=== PATIENT | male | born 1940 | race Caucasian/White ===

== ENCOUNTER 2018-02-22 11:41 | Observation (INO) | payer MEDICARE, BC ==
[2018-02-22] MEDS ORDERED: Aspirin 81 mg CHEW TAB* 81 MG TAB.CHEW PO ONE (12:28)
--- NOTE | 2018-02-22 12:43 | ED ---
HPI Chest Pain - HPI Summary HPI Summary: This patient is a 78 year old M presenting to ED with a chief complaint of CP since 1000 this morning. He was vacuuming and scrubbing the floor before onset ( did not worsen tightness during movement). Patient reports he does exercises and does yoga every morning. The CC is described as tightness and both-sided. At 0400 this morning, he had L shoulder pain that lasted about 2 hours. The pain resolved a bit after he started moving around and doing things. The patient rates the pain 4-5/10 in severity. Symptoms aggravated by nothing. Symptoms alleviated by nothing (took Ibuprofen to no relief). Patient reports labored breathing and indigestion (felt like a knot, yesterday after lunch, resolved last night). Patient denies nausea. He reports no prior episode similar to this. Current vitals include 79 BPM, 97 O2 sat, and BP 162/97. Home Medications Medication Instructions Recorded Confirmed Type Albuterol HFA INHALER* [Proair Hfa 1 puff INH DAILY PRN 04/18/13 02/22/18 History Inhaler*] Calcium Carbonate/Magnesium Ox 1,000 mg PO BEDTIME 04/18/13 02/22/18 History [Calcium & Magnesium] [place]-3 Fatty Acids/Fish Oil 1 cap PO DAILY 04/18/13 02/22/18 History [[place] 3] Carboxymethylcellulose Sodium 0.5 % OP BID 01/08/16 02/22/18 History [Refresh Tears] Fluticasone DISKUS 100 MCG(NF) 1 puff INH BEDTIME 01/08/16 02/22/18 History [Flovent Diskus 100 MCG(NF)] Latanoprost 0.005% OPTH (NF) 1 drop BOTH EYES BEDTIME 01/08/16 02/22/18 History [Xalatan 0.005% OPTH*] Cumin 1 dose PO BID 09/08/17 02/22/18 History Ipratropium [place] 0.03 % NA DAILY 09/08/17 02/22/18 History Aspirin EC TAB* [Ecotrin EC Low 81 mg PO DAILY 10/28/17 02/22/18 History Dose 81 MG*] Cholecalciferol TAB* [Vitamin D 1,000 unit PO EVERY OTHER DAY 10/28/17 02/22/18 History TAB*] Cyanocobalamin TAB* [Vitamin B12 1,000 mcg PO EVERY OTHER DAY 10/28/17 02/22/18 History TAB*] Ibuprofen TAB* [Motrin TAB* 600 MG] 600 mg PO Q6D 10/28/17 02/22/18 History Multivitamins/Minerals TAB* 1 tab PO DAILY 10/28/17 02/22/18 History [Theragran/minerals TAB*] Potassium 99 mg PO DAILY 10/28/17 02/22/18 History - History of Current Complaint Chief Complaint: EDChestPainROMI Time Seen by Provider: 02/22/18 12:22 Hx Obtained From: Patient Onset/Duration: Started Hours Ago Timing: Constant, Lasting Hours Initial Severity: Mild Current Severity: Mild Pain Intensity: 3 Pain Scale Used: 0-10 Numeric Chest Pain Location: Discrete at: - L shoulder pain and both-sided CP Character: Tightness Aggravating Factor(s): Nothing Alleviating Factor(s): Nothing - took Ibuprofen to no relief Associated Signs and Symptoms: Positive: Other: - Patient reports labored breathing and indigestion (felt like a knot, yesterday after lunch, resolved last night). Patient denies nausea. - Allergy/Home Medications Allergies/Adverse Reactions: Allergies Allergy/AdvReac Type Severity Reaction Status Date / Time Penicillins Allergy severe Verified 02/22/18 12:33 hives streptomycin Allergy Unknown Verified 02/22/18 12:33 Reaction Details PMH/Surg Hx/FS Hx/Imm Hx Endocrine/Hematology History: Denies: Hx Diabetes Cardiovascular History: Reports: Hx Hypercholesterolemia, Hx Hypotension, Other Cardiovascular Problems/Disorders - CRAMPING IN [place] DURING SLEEP Denies: Hx Congestive Heart Failure, Hx Hypertension, Hx Pacemaker/ICD Respiratory History: Reports: Hx Asthma, Hx Pneumonia, Other Respiratory Problems/Disorders - TB 40 y/o GI History: Reports: Hx Gastroesophageal Reflux Disease History: Reports: Hx Benign Prostatic Hyperplasia, Other Problems/ Disorders - HX OF SCRAPING OF PROSTATE FOR ENLARGED PROSTATE; ED Denies: Hx Renal Disease Musculoskeletal History: Reports: Hx Back Problems, Hx Scoliosis, Other Musculoskeletal History - sciatica Sensory History: Reports: Hx Contacts or Glasses, Hx Glaucoma Denies: Hx Hearing Aid Opthamlomology History: Reports: Hx Contacts or Glasses, Hx Glaucoma Neurological History: Reports: Hx Headaches, Other Neuro Impairments/Disorders - REMOTE HX SYNCOPE, PAIN CLINIC PT Psychiatric History: Denies: Hx Panic Disorder - Cancer History Cancer Type, Location and Year: 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 ENLARGED PROSTATE REDUCTION 2002 Hx Anesthesia Reactions: No Infectious Disease History: Yes Infectious Disease History: Reports: Hx Tuberculosis - 40 years ago Denies: Traveled Outside the [place] in Last 30 Days - Family History Known Family History: Positive: Other Negative: Cardiac Disease Family History: stroke - Social History Alcohol Use: Weekly Alcohol Amount: USUALLY 1 A DAY Substance Use Type: Reports: None Smoking Status (MU): Never Smoked Tobacco Have You Smoked in the Last Year: No Review of Systems Positive: Chest Pain - both-sided, tightness Positive: Other - labored breathing Positive: Other - indigestion (felt like a knot). Negative: Nausea Positive: Other - L shoulder pain All Other Systems Reviewed And Are Negative: Yes Physical Exam - Summary Physical Exam Summary: Appearance: Well-appearing, moderate pain distress, well-nourished Skin: Warm, color reflects adequate perfusion, dry Head: Normal Head/Face inspection, atraumatic Eyes: Conjunctiva clear ENT: Normal inspection Neck: Supple, no nodes, no JVD Respiratory: Lungs clear, normal breath sounds, no respiratory distress Cardio: RRR, No murmur, pulses normal, brisk capillary refill Abdomen: Soft, nontender Bowel sounds: Present Musculoskeletal: Strength Intact/ROM intact, no calf tenderness, no edema. Psychological: Normal Neuro: Alert, muscle tone normal, no focal deficit Triage Information Reviewed: Yes Vital Signs On Initial Exam: Initial Vitals Temp Pulse Resp BP Pulse Ox 99.1 F 92 18 151/95 100 02/22/18 11:45 02/22/18 11:45 02/22/18 11:45 02/22/18 11:45 02/22/18 11:45 Vital Signs Reviewed: Yes Diagnostics - Vital Signs Vital Signs Temp Pulse Resp BP Pulse Ox 02/22/18 11:45 99.1 F 92 18 151/95 100 - Laboratory Result Diagrams: 02/22/18 12:34 02/22/18 12:34 Lab Statement: Any lab studies that have been ordered have been reviewed, and results considered in the medical decision making process. - Radiology CXR Radiology Interpretation Completed By: Radiologist - NO ACTIVE DISEASE. ED physician has reviewed this radiology report. - EKG 1154 Cardiac Rate: NL - 77 BPM EKG Rhythm: Sinus Rhythm EKG Interpretation: Prolonged OR interval, minimal ST elevation, anterior leads , no STEMI EKG Comparison: Other - change with 2013 Re-Evaluation - Re-Evaluation First Eval Re-Evaluation Time: 13:31 Comment: Discussed with the patient plan for further care and Dr. Cast will consult in the room. Second Eval Re-Evaluation Time: 15:18 Comment: The patient still has chest tightness, and is currently doing a crossword puzzle. Third Eval Re-Evaluation Time: 16:47 Comment: Discussed plan for admission for troponin at increase of 50% although still in the normal range. Patient is agreeable with this plan. Chest Pain Course/Dx - Course Assessment/Plan: CXR reveals NO ACTIVE DISEASE. In the ED course, the patient was given ASA. Consulted Dr. Macdonald at 1626 who accepts the patient for admission. Allergies noted. High blood pressure noted. Pt medications reviewed this visit. The patient will be admitted. The patient is agreeable with this plan. - Chest Pain Differential Diagnosis/HQI/PQRI: Other: - elevated blood pressure without diagnosis of hypertension, chest pain, elevated troponin - Diagnoses Provider Diagnoses: Elevated blood pressure reading without diagnosis of hypertension, Chest pain, Elevated troponin - Provider Notifications Discussed Care Of Patient With: Deirdre Macdonald Time Discussed With Above Provider: 16:26 Instructed by Provider To: Other - Consulted Dr. Macdonald at 1626 who accepts the patient for admission. Discharge - Sign-Out/Discharge Documenting (check all that apply): Patient Departure - Discharge Plan Condition: Stable Disposition: ADMITTED TO [facility] Referrals: Ashwin Hayward MD [Primary Care Provider] -
[2018-02-22 12:44] LABS: ABS Basophils 0.1 10^3/ul (0-0.2); ABS Eosinophils 0.1 10^3/ul (0-0.6); ABS Monocytes 1.1 10^3/ul (0-0.8); ABS Neutrophils 5.4 10^3/ul (1.5-7.7); ABS Nucleated RBC 0 10^3/ul; Eosinophil % 1.2 % (0-6); Hematocrit 44 % (42-52); Hemoglobin 14.9 g/dl (14.0-18.0); Lymphocyte % 22.8 % (25-47); Mean Corpuscular HGB Conc 34 g/dl (31-36); Mean Corpuscular Hemoglobin 31 pg (27-31); Mean Corpuscular Volume 92 fL (80-94); Mean Platelet Volume 8.2 um3 (7.4-10.4); Nucleated Red Blood Cells % 0.1; Platelet Count 156 10^3/ul (150-450); Red Blood Count 4.76 10^6/ul (4.00-5.40); Red Cell Distribution Width 13 % (10.5-15); White Blood Count 8.7 10^3/ul (3.5-10.8)
--- OUTSIDE RECORDS SUMMARY | 2018-02-22 13:00 | XMS REPORT ---
:1940 External Reference #:[id number] Author Organization [facility] Address [address] [place] [address] Phone [phone] Care Team Providers Name Role Phone Ashwin Hayward M.D. 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 [address] Group Name: [place] of [place] [id number] PayID: [id number] Medigap Part B Effective: Policy Number: Milind Galicia 2011 [id number] Group Name: Enhanced [address] [address] PayID: [id number] [place] [id number] Medigap Part B Effective: Policy Number: Milind Yoosels 2010 [id number] Expires: 2011 Group Name: BC/BS of [place] [address] [address] PayID: [id number] [place] [id number] Problems Date Description Provider Status Onset: 03/22/2013 Asthma without status asthmaticus Ashwin Hayward M.D. Active Family History Date Family Member(s) Problem(s) Comments Father due to of "old () age " at 87 no CAD , No DM, Stroke maybe? Father Stroke Mother due to 87 () Stroke , Etoh abuse, Tobac abuse Mother Glaucoma Children 2 Children . Adopted. 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 Cigarette Use Never Smoked Cigarettes ETOH Use Currently consumes 1 glasses of wine daily Smoking Patient has never smoked Exercise Type/Frequency exercises regularly Exercise Type/Frequency . Back exercises in the Am. day. Walks 1 1/2-2 miles about every other Allergies, Adverse Reactions, Alerts Date Description Reaction Status Severity Comments 09/13/2004 Streptomycin active ? reaction 06/23/2011 Penicillins active rash Medications Medication Date Status Form Strength Qnty SIG Indications Ordering Provider Hydrocortisone 08/26 Active Solution 0.1% 60ml apply 4-5 drops Hayward, below lips M.D. as needed Ipratropium 08/23 Active Solution 0.03% 60ml 2 sprays in each Hayward, nostril M.D. bid-tid prn Flovent Diskus 05/29 Active Aerosol 100mcg/Bl 60uni Inhale ist ts puff By Hayward, Mouth M.D. Every Day Aspirin 05/11 Active Tablets 81mg 1 po qd Batool Hayward Ibuprofen 09/18 Active Tablets 600mg 100ta Take 1 bs Tablet By Hayward, Mouth M.D. Three Times A Day as Needed Vitamin B-12 06/16 Active Tablets Sub 2500mcg 1 tab Nacho /2006 every Lessinger, other day M.D. Latanoprost Active Solution 0.005% Unknown / Calcium Citrate Active 1 tab Unknown 1000MG /0000 daily Magnesium 00 Active Capsules 500mg 1 tab Unknown /0000 daily Vitamin D3 00 Active Capsules 400Unit 1 tab Unknown /0000 daily Potassium 00 Active Tablets 99mg 1 tab 2 x Unknown /0000 daily Fish Oil Active Capsules Once a day Unknown /0000 Turmeric Active Capsules 1 by mouth Unknown /0000 every day Quinine Sulfate 02/25 Hx Capsules 324mg 100ca 1 by mouth Z29.9 ps as needed Yesy - M.D. 01/26 Sulfacetamide 05/19 Hx Solution 10% 15ml 2 drops to H10.023 Shawnti R. Sodium both eyes Storm, - qid for 5 COLLECTION CARD CLERK-C 05/29 days or until cleared Sonata 04/01 Hx Capsules 5mg 20cap take one s to two Yesy, - capsule by M.D. 01/26 mouth at bedtime maximum daily dose=2 Prevnar 13 07/31 Hx Suspension 1unit prevnar s vaccine- Yesy, - inject as M.D. 05/28 Flovent Diskus 05/19 Hx Aerosol 250mcg/Bl 60uni 1 puff ist ts every day Yesy - M.D. 08/25 Cyclobenzaprine 05/19 Hx Tablets 5mg 30tab 1-2 by 724.3 Ashwin HCL s mouth Hayward, - three M.D. 05/28 times day as needed Doxycycline 01/12 Hx Capsules 100mg 28cap 1 by mouth 088.81 Ashwin Monohydrate s twice a Hayward, - day x 14 M.D. Zaleplon 01/12 Hx Capsules 5mg 20cap 1-2 by s mouth Yesy, - every M.D. 05/28 night at bedtime as needed for insomnia Doxycycline 12/12 Hx Tablets 100mg 2tabs 2 tabs po 916.6 Julia Hyclate /2013 now Sue, - COLLECTION CARD CLERK-C 05/18 Asmanex 09/22 Hx Aerosol 220mcg/In 1unit Inhale One Ashwin Twisthaler 30 h s puff By Yesy, Tered Doses - Mouth AT M.D. 01/08 Bedtime; [place] Teeth After Use Cipro 08/04 Hx Tablets 500mg 20tab one po bid 486 Shawnti R. /2012 s for 10 Storm, - days [employer]LE[employer] C[employer] CLERK-C 08/14 Guaifenesin 08/04 Hx Tablets 400mg 60tab 1 po bid 486 Shawnti R. /2012 s for mucus Storm, - [employer]LECTION CARD CLERK-C 05/18 Proventil HFA 03/22 Hx Aerosol 108(90Bas 1unit 2 puffs J45.909 e) s q4h prn K.WKris - mcg/Act Jeff, 01/26 M.DKris Spacer, 03/22 Hx 1unit for use s with francesco Vazquez - inhalers Jeff, 05/05 M.Elvia Meclizine HCL 11/08 Hx Tablets 25mg 30tab one tablet Estephanie s every 4-6 Dahlia Rodriges hours as Batool 05/05 needed for dizziness Proctosol HC 11/05 Hx Cream 2.5% 28.35 apply bid 0gm prn Dahlia Hayward M.D. 05/05 Aspirin 05/05 Hx Tablets 325mg 1 po qd Dahlia Hayward M.D. 05/11 Doxycycline 07/[address] 100mg 42cap 1 PO bid X Amada Hyreeseate Part s 3 Weeks Dahlia Mcrae M.D. 04/21 Ciprofloxacin 06/30 Hx Tablets 500mg 20tab 1 po bid 461.0 Estephanie HCL s Dahlia Rodriges M.D. 09/08 Prednisone 06/23 Hx Tablets 10mg 42tab take 6 693.0 Shawnti R. /2010 s tabs by Thomas, - mouth [employer]LE[employer] C[employer] CLERK-C 07/07 today and tomorrow, decrease by one tab every other day then 10mg by mouth for two days, then stop Hydroxyzine HCL 06/23 Hx Tablets 25mg 60tab 1 or 2 po 693.0 Shawnti R. /2010 s qid prn Thomas, - itching [employer]LE[employer] C[employer] CLERK-C 04/21 Amoxicillin/Clav 06/16 Hx Tablets 875-125mg 20tab 1 po bid 466.0 Shawnti R. ulanate /2010 s for 10 Storm, Potassium - days for [employer]LECTION CARD CLERK-C 06/23 infection Proventil HFA 05/02 Hx Aerosol 108(90Bas 1unit 2 puffs 493.90 Shawnti R. e) mcg/ac s q4h prn Tohmas, - COLLECTION CARD CLERK-C 03/22 Vitamin D 08/13 Hx Capsules 1000Unit 30cap 1 po other s day Yesy - M.DKris 01/26 Aspirin 08/13 Hx Tablets 81mg 1 po qd Yesy - M.DKris 05/05 Calcium/Magnesiu 08/13 Hx Tablets 1403-2740 1 qd Yesy, - M.DKris 02/25 Viagra 08/13 Hx Tablets 100mg 12tab 12-1 tab s before Hayward, - intercours M.DKris 02/25 e Ranitidine HCL 08/13 Hx Tablets 150mg 60tab take 1 s tablet Yesy, - daily to M.DKris 08/20 twice daily if needed Ipratropium 08/13 Hx Solution 0.06% 15ml 2 sprays Nikunjwnti R. Douglas each , - nostril [employer]LECTION CARD CLERK-C 05/28 q12hrs prn Triamcinolone 08/13 Hx Cream 0.5% 15gm apply to Acet affected Hayward, - area bid M.D. 04/28 Asmanex 04/29 Hx Inhaler 220mcg 1Mont 1 inh 493.90 Ashwin Twistihaler /2009 h before Yesy, - bed, brush M.D. 01/08 after use Asmanex 60 05/01 Hx Aerosol 220mcg/In 1unit 2 puffs qd 493.90 Ashwin Metered Doses /2008 h s Dahlia Hayward M.DKris 04/29 Proventil HFA 05/01 Hx Aerosol 108mcg/Ac 1unit 2 puffs 493.90 t s q4h prn Dahlia Hayward.DKris 05/02 Flexeril 01/26 Hx Tablets 5mg 30tab 1-2 tid 724.3 s prn Dahlia Hayward.DKris 08/13 Physical Therapy 01/26 Hx Evaluate 724.3 and treat Dahlia Hayward M.D. 04/26 (he to see Jimmie Rosales if possible) Potassium 09/04 Hx Tablets 75mg Nacho /2008 Dahlia Gaxiola M.D. 02/25 Asmanex 120 04/20 Hx Aerosol 220mcg/In 1unit 1 puff qd 493.92 Monika A. Metered Doses /2007 h s Abhishek, - F.N.P.C. 09/04 Albuterol 04/20 Hx Aerosol 90mcg/Act 1unit 2 Puffs 493.92 Monika A. /2007 s Every 4 Abhishek, - Hours prn F.N.P.C. 09/04 Wheeze Nikia 04/20 Hx Tablets 180mg 30tab 1 PO qd 477.9 Monika A. /2007 s Abhishek, - F.N.P.C. 09/04 Doxycycline 02/11 Hx Capsules 100mg 2caps 2 Caps Now Nacho Hyclate /2007 Dahlia Gaxiola M.D. 09/04 Antivert 07/17 Hx Tablets 25mg 48tab one pill 386.10 Shawnti R. /2006 s by mouth Storm, - every 6-8 [employer]LECTION CARD CLERK-C 08/13 hours needed for vertigo Clonazepam 12/23 Hx Tablets 0.5mg 12tab 1-2 tabs 1 Nacho /2006 s hr before Minor, - flight prn M.DKris 09/04 Flonase 05/22 Hx Suspension 50mcg/Spr 1unit 1-2 sprays Shawnti R. /2003 ay s each side Storm, - qd [employer]LE[employer] CARD CLERK-C 05/05 Cipro 03/31 Hx Tablets 500mg 14tab one bid x s 7 days Dahlia Hayward.Elvia 05/10 Keflex 01/28 Hx Tablets 500mg 20tab one bid x 681.02 Julia s 10 days Dahlia Edouard M.DKris 02/04 Nikia 12/19 Hx Cap 60mg 60cap One bid Nacho s prn Nasal Minor, - Congestion M.D. 04/20 Azopt Hx Suspension 1% Anthony,Ph /0000 MD gracie - 05/18 Immunizations CPT Code Status Date Vaccine Reaction Lot # [id number] Given 05/11/2017 [place] [address] Given 08/21/2016 Typhoid Vaccine [id number] 66515 Given 05/24/2016 [place] [address] Given 06/11/2015 Hepatitis A, Adult [id number] 75290 Given 05/29/2015 Prevnar-13 Pneumococcal [id number] Conjugate Vaccine 89144 Given 05/29/2015 Influenza Vaccine High Dose [id number] PF 23505 Given 05/19/2014 Hepatitis A, Adult [id number] 96283 Given 05/17/2014 [place] [address] Given 05/10/2013 Influenza Vaccine-Preservative Free 3 Yrs And Above 21894 Given 05/07/2012 Influenza Vaccine [place] D[place] [id number] [place] [address] Given 05/05/2012 Tdap (Adacel) 65802 Given 08/13/2010 Pneumovax 23 (PPSV23) 65+ /01/18 sore arm, weak, [id number] years or high risk 2 to 64 achy 6 hr post year old injection 87680 Given 05/10/2010 Influenza Vaccine-Preservative Free 3 Yrs And Above 27039 Given 09/04/2008 Zoster Vaccine [id number] 59283 Given 09/04/2008 Td Age 7 to adult Decavac, [id number] Tenivac, [employer] 65698 Given 06/15/2007 Influenza Virus Vaccine, 3 Yrs And Above 88493 Given 05/26/2005 Influenza Virus Vaccine, 3 Yrs And Above 63559 Given 08/08/1999 DT (Adult) 13983 Given 08/01/1996 Influenza Virus Vaccine 17753 Given 05/16/1994 Influenza Virus Vaccine 23064 Given 05/22/1993 Influenza Virus Vaccine Vital Signs Date Vital Result Comment 01/26/2018 Weight 185.00 lb Weight in kg's 83.916 BP Systolic 135 mmHg BP Diastolic 82 mmHg Heart Rate 72 /min Body Temperature 97.8 F O2 % BldC Oximetry 96 % 11/10/2017 Weight 182.00 lb Weight in kg's 82.555 BP Systolic 100 mmHg BP Diastolic 60 mmHg Heart Rate 92 /min Body Temperature 100.3 F O2 % BldC Oximetry 97 % 08/26/2017 Weight 185.00 lb Weight in kg's 83.916 BP Systolic 122 mmHg BP Diastolic 60 mmHg Heart Rate 70 /min Body Temperature 97.1 F Respiratory Rate 16 /min Height 71 inches 5'11" BMI (Body Mass Index) 25.8 kg/m2 O2 % BldC Oximetry 97 % 02/25/2017 Weight 185.00 lb Weight in kg's 83.916 BP Systolic 124 mmHg BP Diastolic 58 mmHg Heart Rate 68 /min Body Temperature 97.6 F Respiratory Rate 19 /min O2 % BldC Oximetry 98 % 08/21/2016 Weight 184.00 lb Weight in kg's 83.462 BP Systolic 128 mmHg BP Diastolic 68 mmHg Heart Rate 72 /min Body Temperature 97.7 F Respiratory Rate 14 /min Height 69.5 inches 5'9.50" BMI (Body Mass Index) 26.8 kg/m2 05/19/2016 Weight 187.00 lb Weight in kg's 84.823 BP Systolic 118 mmHg BP Diastolic 62 mmHg Heart Rate 82 /min Body Temperature 98.1 F Respiratory Rate 17 /min O2 % BldC Oximetry 98 % 05/29/2015 Weight 185.00 lb Weight in kg's 83.916 BP Systolic 120 mmHg BP Diastolic 76 mmHg Heart Rate 80 /min Height 70 inches 5'10" BMI (Body Mass Index) 26.5 kg/m2 05/19/2014 Weight 186.00 lb Weight in kg's 84.370 BP Systolic 114 mmHg BP Diastolic 72 mmHg Heart Rate 80 /min Height 71 inches 5'11" BMI (Body Mass Index) 25.9 kg/m2 01/12/2014 Weight 182.00 lb Weight in kg's 82.555 BP Systolic 96 mmHg BP Diastolic 68 mmHg Heart Rate 78 /min Body Temperature 96.9 F O2 % BldC Oximetry 99 % 12/12/2013 Weight 184.00 lb Weight in kg's 83.462 BP Systolic 114 mmHg BP Diastolic 66 mmHg Heart Rate 64 /min 08/04/2013 Weight 186.00 lb Weight in kg's 84.370 BP Systolic 120 mmHg BP Diastolic 70 mmHg Heart Rate 80 /min Body Temperature 97.5 F O2 % BldC Oximetry 95 % Level AT Rest 05/10/2013 Weight 180.00 lb Weight in kg's 81.648 BP Systolic 102 mmHg BP Diastolic 60 mmHg Heart Rate 72 /min Body Temperature 97.8 F Height 69.5 inches 5'9.50" BMI (Body Mass Index) 26.2 kg/m2 03/22/2013 Weight 180.00 lb Weight in kg's 81.648 BP Systolic 100 mmHg BP Diastolic 66 mmHg Heart Rate 77 /min Body Temperature 97.8 F O2 % BldC Oximetry 98 % 11/05/2012 Weight 176.00 lb Weight in kg's 79.834 BP Systolic 120 mmHg BP Diastolic 72 mmHg Heart Rate 74 /min Body Temperature 98.6 F 05/05/2012 Weight 180.00 lb Weight in kg's 81.648 BP Systolic 110 mmHg BP Diastolic 70 mmHg Heart Rate 84 /min Height 70 inches 5'10" BMI (Body Mass Index) 25.8 kg/m2 03/23/2012 Weight 179.00 lb Weight in kg's 81.194 BP Systolic 118 mmHg BP Diastolic 66 mmHg Heart Rate 76 /min 07/04/2011 Weight 182.00 lb Weight in kg's 82.555 BP Systolic 110 mmHg BP Diastolic 60 mmHg Heart Rate 68 /min Body Temperature 96.8 F 06/30/2011 Weight 183.00 lb Weight in kg's 83.009 BP Systolic 96 mmHg BP Diastolic 70 mmHg Heart Rate 80 /min 7 Body Temperature 97.6 F O2 % BldC Oximetry 98 % 06/23/2011 Weight 174.00 lb Weight in kg's 78.926 BP Systolic 116 mmHg BP Diastolic 66 mmHg Heart Rate 80 /min Body Temperature 98.3 F O2 % BldC Oximetry 98 % AT Room Air 06/16/2011 Weight 181.00 lb Weight in kg's 82.102 BP Systolic 100 mmHg BP Diastolic 60 mmHg Heart Rate 84 /min 08/13/2010 Weight 187.00 lb Weight in kg's 84.823 BP Systolic 130 mmHg BP Diastolic 70 mmHg Heart Rate 60 /min Respiratory Rate 18 /min Height 70 inches 5'10" BMI (Body Mass Index) 26.8 kg/m2 04/29/2010 Weight 184.00 lb Weight in kg's 83.462 BP Systolic 120 mmHg BP Diastolic 70 mmHg Heart Rate 80 /min 03/22/2010 Weight 186.00 lb Weight in kg's 84.370 BP Systolic 118 mmHg BP Diastolic 78 mmHg Heart Rate 68 /min Body Temperature 97.2 F Last Menstrual Period 0 O2 % BldC Oximetry 94 % On Room Air 09/05/2009 Weight 184.00 lb Weight in kg's 83.462 BP Systolic 120 mmHg BP Diastolic 70 mmHg Heart Rate 76 /min 05/01/2009 Weight 186.00 lb Weight in kg's 84.370 BP Systolic 124 mmHg BP Diastolic 70 mmHg Heart Rate 76 /min 01/26/2009 Weight 183.00 lb Weight in kg's 83.009 BP Systolic 120 mmHg BP Diastolic 80 mmHg Heart Rate 68 /min Body Temperature 96.5 F 09/04/2008 Weight 184.00 lb Weight in kg's 83.462 BP Systolic 110 mmHg BP Diastolic 60 mmHg Heart Rate 60 /min Height 70 inches 5'10" BMI (Body Mass Index) 26.4 kg/m2 05/22/2008 Weight 184.00 lb Weight in kg's 83.462 BP Systolic 92 mmHg BP Diastolic 60 mmHg Heart Rate 72 /min Height 70.5 inches 5'10.50" BMI (Body Mass Index) 26.0 kg/m2 04/20/2008 Weight 187.00 lb Weight in kg's 84.823 BP Systolic 120 mmHg BP Diastolic 70 mmHg Heart Rate 64 /min Height 70.5 inches 5'10.50" BMI (Body Mass Index) 26.4 kg/m2 08/30/2007 Weight 185.00 lb Weight in kg's 83.916 BP Systolic 118 mmHg BP Diastolic 68 mmHg Heart Rate 67 /min Height 70.5 inches 5'10.50" BMI (Body Mass Index) 26.2 kg/m2 Last Menstrual Period 0 O2 % BldC Oximetry 97 % 07/17/2007 Weight 187.00 lb With Clothes Weight in kg's 84.823 BP Systolic 110 mmHg BP Diastolic 62 mmHg Body Temperature 97.9 F Height 70.5 inches 5'10.50" BMI (Body Mass Index) 26.4 kg/m2 06/16/2007 Weight 185.00 lb Weight in kg's 83.916 BP Systolic 104 mmHg BP Diastolic 72 mmHg Heart Rate 80 /min Height 70.5 inches 5'10.50" BMI (Body Mass Index) 26.2 kg/m2 08/26/2006 Weight 188.00 lb Weight in kg's 85.277 BP Systolic 120 mmHg BP Diastolic 80 mmHg Heart Rate 60 /min Respiratory Rate 18 /min Height 70.5 inches 5'10.50" BMI (Body Mass Index) 26.6 kg/m2 05/26/2005 Weight 186.00 lb Weight in kg's 84.370 BP Systolic 100 mmHg BP Diastolic 70 mmHg Heart Rate 72 /min Height 70.5 inches 5'10.50" BMI (Body Mass Index) 26.3 kg/m2 09/13/2004 Weight 184.00 lb Weight in kg's 83.462 BP Systolic 110 mmHg BP Diastolic 70 mmHg Body Temperature 97.1 F Height 70.5 inches 5'10.50" BMI (Body Mass Index) 26.0 kg/m2 05/22/2004 Weight 184.00 lb Weight in kg's 83.462 BP Systolic 98 mmHg BP Diastolic 60 mmHg Heart Rate 76 /min Respiratory Rate 18 /min Height 70.5 inches 5'10.50" BMI (Body Mass Index) 26.0 kg/m2 02/05/2004 Weight 182.00 lb Weight in kg's 82.555 BP Systolic 120 mmHg BP Diastolic 60 mmHg 11/24/2003 Weight 182.00 lb Weight in kg's 82.555 BP Systolic 122 mmHg BP Diastolic 72 mmHg Heart Rate 71 /min Respiratory Rate 18 /min 04/07/2003 BP Systolic 90 mmHg BP Diastolic 64 mmHg Body Temperature 98.8 F 03/23/2003 Weight 184.00 lb Weight in kg's 83.462 BP Systolic 110 mmHg BP Diastolic 70 mmHg Body Temperature 8.4 F 03/03/2003 Weight 184.00 lb Weight in kg's 83.462 BP Systolic 110 mmHg BP Diastolic 62 mmHg Body Temperature 98.2 F 12/19/2002 Weight 184.00 lb Weight in kg's 83.462 BP Systolic 100 mmHg BP Diastolic 60 mmHg Heart Rate 76 /min Respiratory Rate 18 /min Height 71 inches BMI (Body Mass Index) 25.7 kg/m2 09/05/2002 Weight 187.50 lb Weight in kg's 85.0 BP Systolic 104 mmHg BP Diastolic 68 mmHg 01/05/2002 Weight 189.00 lb BP Systolic 92 mmHg BP Diastolic 60 mmHg Heart Rate 72 /min Results Test Date Test Result H/L Range Note Istat BUN/Crea/Egfr/V Mainct 01/27/2018 Poc Bun Mainct 19 mg/dL High 9-18 Poc Crea Mainct 0.9 mg/dL 0.6-0.9 GFR Non- MCT 81.6 >60 GFR Mainct 98.7 >60 1 Order 01/26/2018 EKG <pending> Laboratory test finding 08/25/2017 Hemoglobin A1c 5.5 % 4.0-5.6 2 Comp Metabolic Panel 08/25/2017 Sodium 138 mmol/L 133-145 Potassium 3.9 mmol/L 3.5-5.0 Chloride 104 mmol/L 101-111 Co2 Carbon Dioxide 30 mmol/L 22-32 Anion Gap 4 mmol/L 2-11 Glucose 93 mg/dL 70-100 Blood Urea Nitrogen 15 mg/dL 6-24 Creatinine 0.96 mg/dL 0.67-1.17 BUN/Creatinine Ratio 15.6 8-20 Calcium 9.2 mg/dL 8.6-10.3 Total Protein 6.6 g/dL 6.4-8.9 Albumin 3.8 g/dL 3.2-5.2 Globulin 2.8 g/dL 2-4 Albumin/Globulin Ratio 1.4 1-3 Total Bilirubin 1.10 mg/dL High 0.2-1.0 Alkaline Phosphatase 63 U/L 34-104 Alt 20 U/L 7-52 Ast 23 U/L 13-39 Egfr Non- 76.0 >60 Egfr 97.7 >60 3 Lipid Profile (Trig/Chol/HDL) 08/25/2017 Triglycerides 92 mg/dL 4 Cholesterol 153 mg/dL 5 HDL Cholesterol 34.3 mg/dL 6 LDL Cholesterol 100 mg/dL 7 CBC Auto Diff 08/25/2017 White Blood Count 5.8 10^3/uL 3.5-10.8 Red Blood Count 4.85 10^6/uL 4.0-5.4 Hemoglobin 15.2 g/dL 14.0-18.0 Hematocrit 44 % 42-52 Mean Corpuscular Volume 91 fL 80-94 Mean Corpuscular Hemoglobin 31 pg 27-31 Mean Corpuscular HGB Conc 34 g/dL 31-36 Red Cell Distribution Width 13 % 10.5-15 Platelet Count 156 10^3/uL 150-450 Mean Platelet Volume 8 um3 7.4-10.4 Abs Neutrophils 2.3 10^3/uL 1.5-7.7 Abs Lymphocytes 2.6 10^3/uL 1.0-4.8 Abs Monocytes 0.7 10^3/uL 0-0.8 Abs Eosinophils 0.2 10^3/uL 0-0.6 Abs Basophils 0 10^3/uL 0-0.2 Abs Nucleated RBC 0 10^3/uL Granulocyte % 40.1 % 38-83 Lymphocyte % 44.2 % 25-47 Monocyte % 12.0 % High 1-9 Eosinophil % 3.0 % 0-6 Basophil % 0.7 % 0-2 Nucleated Red Blood Cells % 0.1 Laboratory test finding 08/25/2017 Vitamin B12 616 pg/mL 180-914 8 Laboratory test finding 08/21/2016 Hemoglobin A1c (Glyco 5.3 % Less than 6.0 9 HGB) Comp Metabolic Panel 08/21/2016 Sodium 138 mmol/L 133-145 Potassium 4.2 mmol/L 3.5-5.0 Chloride 105 mmol/L 101-111 Co2 Carbon Dioxide 29 mmol/L 22-32 Anion Gap 4 mmol/L 2-11 Glucose 96 mg/dL 70-100 Blood Urea Nitrogen 17 mg/dL 6-24 Creatinine 0.98 mg/dL 0.67-1.17 BUN/Creatinine Ratio 17.3 8-20 Calcium 9.6 mg/dL 8.6-10.3 Total Protein 7.0 g/dL 6.4-8.9 Albumin 4.2 g/dL 3.2-5.2 Globulin 2.8 g/dL 2-4 Albumin/Globulin Ratio 1.5 1-3 Total Bilirubin 1.40 mg/dL High 0.2-1.0 Alkaline Phosphatase 57 U/L 34-104 Alt 17 U/L 7-52 Ast 21 U/L 13-39 Egfr Non- 74.4 >60 Egfr 95.6 >60 10 Lipid Profile (Trig/Chol/HDL) 08/21/2016 Triglycerides 159 mg/dL 11 Cholesterol 177 mg/dL 12 HDL Cholesterol 33.4 mg/dL 13 LDL Cholesterol 112 mg/dL 14 CBC Auto Diff 08/21/2016 White Blood Count 6.4 10^3/uL 3.5-10.8 Red Blood Count 5.09 10^6/uL 4.0-5.4 Hemoglobin 15.7 g/dL 14.0-18.0 Hematocrit 47 % 42-52 Mean Corpuscular Volume 92 fL 80-94 Mean Corpuscular Hemoglobin 31 pg 27-31 Mean Corpuscular HGB Conc 33 g/dL 31-36 Red Cell Distribution Width 13 % 10.5-15 Platelet Count 146 10^3/uL Low 150-450 Mean Platelet Volume 10 um3 7.4-10.4 Abs Neutrophils 2.7 10^3/uL 1.5-7.7 Abs Lymphocytes 2.8 10^3/uL 1.0-4.8 Abs Monocytes 0.7 10^3/uL 0-0.8 Abs Eosinophils 0.1 10^3/uL 0-0.6 Abs Basophils 0 10^3/uL 0-0.2 Abs Nucleated RBC 0.01 10^3/uL Granulocyte % 42.2 % 38-83 Lymphocyte % 44.2 % 25-47 Monocyte % 10.6 % High 1-9 Eosinophil % 2.3 % 0-6 Basophil % 0.7 % 0-2 Nucleated Red Blood Cells % 0.1 Laboratory test finding 08/21/2016 Vitamin B12 583 pg/mL 180-914 15 Urine DIP 08/21/2016 Leukocytes NEG Neg Urine Nitrites NEG Neg Urobilinogen NORM Norm Total Protein, Urine NEG Neg Urine pH 5 5-6 Urine Blood TRACE Neg Specific [place] 1.020 1.01-1.02 Urine Ketones NEG Neg Urine Bilirubin NEG Neg Urine Glucose NORM Norm Laboratory test 01/14/2016 Surgical Pathology SEE RESULT BELOW 16 finding Laboratory test 05/23/2015 Hemoglobin A1c 6.0 % Less than 6.0 17 finding Comp Metabolic Panel 05/23/2015 Sodium 137 mmol/L 133-145 Potassium 4.1 mmol/L 3.5-5.0 Chloride 106 mmol/L 101-111 Co2 Carbon Dioxide 27 mmol/L 22-32 Anion Gap 4 mmol/L 2-11 Glucose 95 mg/dL 70-100 Blood Urea Nitrogen 11 mg/dL 6-24 Creatinine 1.03 mg/dL 0.67-1.17 BUN/Creatinine Ratio 10.7 8-20 Calcium 9.0 mg/dL 8.6-10.3 Total Protein 6.7 g/dL 6.4-8.9 Albumin 4.0 g/dL 3.2-5.2 Globulin 2.7 g/dL 2-4 Albumin/Globulin Ratio 1.5 1-3 Total Bilirubin 0.70 mg/dL 0.2-1.0 Alkaline Phosphatase 52 U/L 34-104 Alt 17 U/L 7-52 Ast 19 U/L 13-39 Egfr Non- 70.4 >60 Egfr 90.5 >60 18 Lipid Profile (Trig/Chol/HDL) 05/23/2015 Triglycerides 107 mg/dL 19 Cholesterol 163 mg/dL 20 HDL Cholesterol 33.0 mg/dL 21 LDL Cholesterol 109 mg/dL 22 CBC Auto Diff 05/23/2015 White Blood Count 6.1 10^3/uL 4.8-10.8 Red Blood Count 5.04 10^6/uL 4.0-5.4 Hemoglobin 15.6 g/dL 14.0-18.0 Hematocrit 48 % 42-52 Mean Corpuscular Volume 95 fL High 80-94 Mean Corpuscular Hemoglobin 31 pg 27-31 Mean Corpuscular HGB Conc 33 g/dL 31-36 Red Cell Distribution Width 13 % 10.5-15 Platelet Count 139 10^3/uL Low 150-450 Mean Platelet Volume 9 um3 7.4-10.4 Abs Neutrophils 2.3 10^3/uL 1.5-7.7 Abs Lymphocytes 2.8 10^3/uL 1.0-4.8 Abs Monocytes 0.6 10^3/uL 0-0.8 Abs Eosinophils 0.2 10^3/uL 0-0.6 Abs Basophils 0.1 10^3/uL 0-0.2 Abs Nucleated RBC 0.02 10^3/uL Granulocyte % 38.7 % 38-83 Lymphocyte % 46.8 % 25-47 Monocyte % 10.0 % High 1-9 Eosinophil % 3.6 % 0-6 Basophil % 0.9 % 0-2 Nucleated Red Blood Cells % 0.3 Laboratory test finding 05/23/2015 Vitamin B12 482 pg/mL 180-914 23 Laboratory test finding 04/02/2015 PSA Screening 0.952 ng/mL 0-4.0 24 Basic Metabolic Panel 04/02/2015 Sodium 135 mmol/L 133-145 Potassium 3.9 mmol/L 3.5-5.0 Chloride 104 mmol/L 101-111 Co2 Carbon Dioxide 24 mmol/L 22-32 Anion Gap 7 mmol/L 2-11 Glucose 86 mg/dL 70-100 Blood Urea Nitrogen 17 mg/dL 6-24 Creatinine 0.95 mg/dL 0.67-1.17 BUN/Creatinine Ratio 17.9 8-20 Calcium 9.1 mg/dL 8.6-10.3 Egfr Non- 77.3 >60 Egfr 99.4 >60 25 Urine DIP 05/19/2014 Specific [place] 1.015 1.01-1.02 Urine pH 5 5-6 Leukocytes NEG Neg Urine Nitrites NEG Neg Total Protein, Urine NEG Neg Urine Glucose NORM Norm Urine Ketones NEG Neg Urobilinogen NORM Norm Urine Bilirubin NEG Neg Urine Blood NEG Neg CBC Auto Diff 05/16/2014 White Blood Count 5.4 10^3/uL 4.8-10.8 26 Red Blood Count 4.89 10^6/uL 4.0-5.4 26 Hemoglobin 15.2 g/dL 14.0-18.0 26 Hematocrit 45 % 42-52 26 Mean Corpuscular Volume 92 fL 80-94 26 Mean Corpuscular Hemoglobin 31 pg 27-31 26 Mean Corpuscular HGB Conc 34 g/dL 31-36 26 Red Cell Distribution Width 13 % 10.5-15 26 Platelet Count 142 10^3/uL Low 150-450 26 Mean Platelet Volume 9 um3 7.4-10.4 26 Abs Neutrophils 2.0 10^3/uL 1.5-7.7 26 Abs Lymphocytes 2.5 10^3/uL 1.0-4.8 26 Abs Monocytes 0.6 10^3/uL 0-0.8 26 Abs Eosinophils 0.2 10^3/uL 0-0.6 26 Abs Basophils 0.1 10^3/uL 0-0.2 26 Abs Nucleated RBC 0 10^3/uL 26 Laboratory test finding 05/16/2014 Hemoglobin A1c 5.6 % Less than 6.0 26 , 27 Comp Metabolic Panel 05/16/2014 Sodium 138 mmol/L 133-145 26 Potassium 3.8 mmol/L 3.7-5.6 26 Chloride 107 mmol/L 101-111 26 Co2 Carbon Dioxide 26 mmol/L 22-32 26 Anion Gap 5 mmol/L 2-11 26 Glucose 97 mg/dL 70-100 26 Blood Urea Nitrogen 17 mg/dL 6-24 26 Creatinine 0.96 mg/dL 0.67-1.17 26 BUN/Creatinine Ratio 17.7 8-20 26 Calcium 9.2 mg/dL 8.6-10.3 26 Total Protein 6.7 g/dL 6.4-8.9 26 Albumin 3.9 g/dL 3.2-5.2 26 Globulin 2.8 g/dL 2-4 26 Albumin/Globulin Ratio 1.4 1-3 26 Total Bilirubin 1.20 mg/dL High 0.2-1.0 26 Alkaline Phosphatase 48 U/L 34-104 26 Alt 19 U/L 7-52 26 Ast 18 U/L 13-39 26 Egfr Non- 76.6 >60 26 Egfr 98.5 >60 26, 28 Laboratory test finding 05/16/2014 Vitamin B12 687 pg/mL 180-914 26, 29 Vitamin D, 25 Hydroxy 05/16/2014 25-Hydroxy Vitamin D2 <4.0 ng/mL 26 25-Hydroxy Vitamin D3 48 ng/mL 26 25-Hydroxy Vitamin D Total 48 ng/mL 26, 30 Lipid Profile (Trig/Chol/HDL) 05/16/2014 Triglycerides 99 mg/dL 26, 31 Cholesterol 174 mg/dL 26, 32 HDL Cholesterol 36.7 mg/dL 26, 33 LDL Cholesterol 118 mg/dL 26, 34 Manual Differential 05/16/2014 Neutrophil % 37 % Low 38-83 26 Lymphocytes % 51 % High 25-47 26 Monocytes % 8 % 0-13 26 Eosinophils % 3 % 0-6 26 Basophil % 1 % 0-2 26 RBC Morphology Normal Normal 26 Laboratory test finding 03/27/2014 PSA Diagnostic 0.857 ng/mL 0-4.0 35 CBC Auto Diff 05/10/2013 White Blood Count 7.2 10^3/uL 4.8-10.8 Red Blood Count 4.91 10^6/uL 4.0-5.4 Hemoglobin 15.2 g/dL 14.0-18.0 Hematocrit 46 % 42-52 Mean Corpuscular Volume 93 fL 80-94 Mean Corpuscular Hemoglobin 31 pg 27-31 Mean Corpuscular HGB Conc 33 g/dL 31-36 Red Cell Distribution Width 14 % 10.5-15 Platelet Count 136 10^3/uL Low 150-450 Mean Platelet Volume 10 um3 7.4-10.4 Abs Neutrophils 3.2 10^3/uL 1.5-7.7 Abs Lymphocytes 3.0 10^3/uL 1.0-4.8 Abs Monocytes 0.8 10^3/uL 0-0.8 Abs Eosinophils 0.2 10^3/uL 0-0.6 Abs Basophils 0.1 10^3/uL 0-0.2 Abs Nucleated RBC 0 10^3/uL Granulocyte % 43.5 % 38-83 Lymphocyte % 41.9 % 25-47 Monocyte % 10.5 % High 1-9 Eosinophil % 3.3 % 0-6 Basophil % 0.8 % 0-2 Nucleated Red Blood Cells % 0.1 Laboratory test finding 05/10/2013 Hemoglobin A1c 5.7 % Less than 6.0 36 Comp Metabolic Panel 05/10/2013 Sodium 135 mmol/L 133-145 Potassium 3.6 mmol/L 3.5-5.0 Chloride 102 mmol/L 101-111 Co2 Carbon Dioxide 26.0 mmol/L 22-32 Anion Gap 7.0 mmol/L 2-11 Glucose 84 mg/dL 70-100 Blood Urea Nitrogen 13 mg/dL 6-24 Creatinine 1.00 mg/dL 0.50-1.40 BUN/Creatinine Ratio 13.0 8-20 Calcium 9.3 mg/dL 8.1-9.9 Total Protein 7.0 g/dL 6.2-8.1 Albumin 3.9 g/dL 3.2-5.2 Globulin 3.1 g/dL 2-4 Albumin/Globulin Ratio 1.3 1-3 Total Bilirubin 1.3 mg/dL 0.4-1.5 Alkaline Phosphatase 56 U/L 30-110 Alt 26 U/L 14-54 Ast 26 U/L 12-42 Egfr Non- 73.2 >60 Egfr 94.2 >60 37 Laboratory test finding 05/10/2013 Vitamin B12 539 pg/mL 180-914 38 Vitamin D, 25 Hydroxy 05/10/2013 25-Hydroxy Vitamin D2 <4.0 ng/mL 25-Hydroxy Vitamin D3 39 ng/mL 25-Hydroxy Vitamin D Total 39 ng/mL 39 Urine DIP 05/10/2013 Leukocytes neg Neg Urine Nitrites neg Neg Urine pH 5-6 5-6 Total Protein, Urine neg Neg Urine Glucose norm Norm Urine Ketones neg Neg Urobilinogen norm Norm Urine Bilirubin neg Neg Urine Blood neg Neg Specific [place] 1.010 1.01-1.02 Laboratory test finding 03/28/2013 PSA Diagnostic 0.91 ng/mL 0-4.0 40 CBC Auto Diff 11/04/2012 White Blood Count 10.1 10^3/uL 4.8-10.8 Red Blood Count 4.86 10^6/uL 4.0-5.4 Hemoglobin 15.6 g/dL 14.0-18.0 Hematocrit 45 % 42-52 Mean Corpuscular Volume 93 fL 80-94 Mean Corpuscular Hemoglobin 32 pg High 27-31 Mean Corpuscular HGB Conc 35 g/dL 31-36 Red Cell Distribution Width 13 % 10.5-15 Platelet Count 131 10^3/uL Low 150-450 Mean Platelet Volume 9 um3 7.4-10.4 Abs Neutrophils 7.8 10^3/uL High 1.5-7.7 Abs Lymphocytes 1.6 10^3/uL 1.0-4.8 Abs Monocytes 0.7 10^3/uL 0-0.8 Abs Eosinophils 0 10^3/uL 0-0.6 Abs Basophils 0 10^3/uL 0-0.2 Abs Nucleated RBC 0 10^3/uL Granulocyte % 77.3 % 38-83 Lymphocyte % 15.5 % Low 25-47 Monocyte % 6.7 % 1-9 Eosinophil % 0.1 % 0-6 Basophil % 0.4 % 0-2 Nucleated Red Blood Cells % 0 Comp Metabolic Panel 11/04/2012 Sodium 138 mmol/L 133-145 Potassium 3.4 mmol/L Low 3.5-5.0 Chloride 104 mmol/L 101-111 Co2 Carbon Dioxide 26.0 mmol/L 22-32 Anion Gap 8.0 mmol/L 2-11 Glucose 96 mg/dL 70-100 Blood Urea Nitrogen 15 mg/dL 6-24 Creatinine 1.10 mg/dL 0.50-1.40 BUN/Creatinine Ratio 13.6 8-20 Calcium 9.0 mg/dL 8.1-9.9 Total Protein 7.1 g/dL 6.2-8.1 Albumin 3.6 g/dL 3.2-5.2 Globulin 3.5 g/dL 2-4 Albumin/Globulin Ratio 1.0 1-3 Total Bilirubin 2.0 mg/dL High 0.4-1.5 Alkaline Phosphatase 49 U/L 30-110 Alt 104 U/L High 14-54 Ast 71 U/L High 12-42 Egfr Non- 65.8 >60 Egfr 84.6 >60 41 Laboratory test finding 11/04/2012 Lipase 16 U/L Low 22-51 Direct Bilirubin 0.3 mg/dL 0.1-0.5 Urinalysis 11/04/2012 Urine Color Yellow Urine Appearance Clear Urine Specific [place] 1.011 1.010-1.030 Urine Esterase Negative Negative Urine Nitrate Negative Negative Urine Urobilinogen Negative E.U./dL Negative Urine Protein Negative mg/dL Negative Urine pH 6.0 5-9 Urine Blood 1+ Negative Urine Ketones Negative mg/dL Negative Urine Bilirubin Negative Negative Urine Glucose Negative mg/dL Negative Urine Microscopic 11/04/2012 Urine RBC 3+ (>10 /hpf) None Seen Urine Mucus Present /lpf Absent Stool For Blood 11/04/2012 Stool Occult Blood (SEE NOTE) 42 Urinalysis 11/01/2012 Urine Color Yellow Urine Appearance Clear Urine Specific [place] 1.010 1.010-1.030 Urine Esterase Negative Negative Urine Nitrate Negative Negative Urine Urobilinogen Negative E.U./dL Negative Urine Protein Negative mg/dL Negative Urine pH 7.0 5-9 Urine Blood Negative Negative Urine Ketones Negative mg/dL Negative Urine Bilirubin Negative Negative Urine Glucose Negative mg/dL Negative CBC Auto Diff 10/31/2012 White Blood Count 8.2 10^3/uL 4.8-10.8 Red Blood Count 4.77 10^6/uL 4.0-5.4 Hemoglobin 14.5 g/dL 14.0-18.0 Hematocrit 44 % 42-52 Mean Corpuscular Volume 93 fL 80-94 Mean Corpuscular Hemoglobin 30 pg 27-31 Mean Corpuscular HGB Conc 33 g/dL 31-36 Red Cell Distribution Width 13 % 10.5-15 Platelet Count 133 10^3/uL Low 150-450 Mean Platelet Volume 9 um3 7.4-10.4 Abs Neutrophils 3.6 10^3/uL 1.5-7.7 Abs Lymphocytes 3.2 10^3/uL 1.0-4.8 Abs Monocytes 0.9 10^3/uL High 0-0.8 Abs Eosinophils 0.2 10^3/uL 0-0.6 Abs Basophils 0.2 10^3/uL 0-0.2 Abs Nucleated RBC 0 10^3/uL Manual Differential 10/31/2012 Neutrophil % 43 % 38-83 Band % 1 % 0-8 Lymphocytes % 45 % 25-47 Monocytes % 5 % 0-13 Eosinophils % 1 % 0-6 Basophil % 2 % 0-2 Reactive Lymph % 3 % 0-6 RBC Morphology Normal Normal Comp Metabolic Panel 10/31/2012 Sodium 136 mmol/L 133-145 Potassium 3.0 mmol/L Low 3.5-5.0 Chloride 104 mmol/L 101-111 Co2 Carbon Dioxide 24.0 mmol/L 22-32 Anion Gap 8.0 mmol/L 2-11 Glucose 104 mg/dL High 70-100 Blood Urea Nitrogen 13 mg/dL 6-24 Creatinine 1.00 mg/dL 0.50-1.40 BUN/Creatinine Ratio 13.0 8-20 Calcium 8.9 mg/dL 8.1-9.9 Total Protein 6.9 g/dL 6.2-8.1 Albumin 3.8 g/dL 3.2-5.2 Globulin 3.1 g/dL 2-4 Albumin/Globulin Ratio 1.2 1-3 Total Bilirubin 1.3 mg/dL 0.4-1.5 Alkaline Phosphatase 47 U/L 30-110 Alt 26 U/L 14-54 Ast 26 U/L 12-42 Egfr Non- 73.5 >60 Egfr 94.5 >60 43 Laboratory test finding 10/31/2012 Magnesium 2.1 mg/dL 1.7-2.6 Troponin I 0 ng/mL 0-0.06 44 Alcohol 30.7 mg/dL High Less Than 10 45 TSH (Thyroid Stimulating Horm) 1.97 miu/mL 0.34-5.60 Urine DIP 05/05/2012 Leukocytes NEG Neg Urine Nitrites NEG Neg Urine pH 5 5-6 Total Protein, Urine NEG Neg Urine Glucose NORM Norm Urine Ketones NEG Neg Urobilinogen NORM Norm Urine Bilirubin NEG Neg Urine Blood TRACE Neg Specific [place] NA Low 1.01-1.02 Comp Metabolic Panel 03/30/2012 Sodium 136 mmol/L 135-145 Potassium 3.8 mmol/L 3.5-5.0 Chloride 108 mmol/L 101-111 Co2 (Carbon Dioxide) 23.0 mmol/L 22-32 Anion Gap 5.0 mmol/L 2-11 46 Glucose 97 mg/dL 70-100 BUN 17 mg/dL 6-24 Creatinine 0.9 mg/dL 0.50-1.40 One Over Creatinine 1.11 BUN/Creatinine Ratio 18.9 8-20 Calcium 9.1 mg/dL 8.1-9.9 Total Protein 6.3 GM/DL 6.2-8.1 Albumin 3.9 GM/DL 3.2-5.2 Globulin 2.4 GM/DL 2-4 Albumin/Globulin Ratio 1.6 1-3 Bilirubin Total 1.3 mg/dL 0.4-1.5 47 Alkaline Phosphatase 54 U/L 39-117 Alt (SGPT) 23 U/L 17-63 Ast (Sgot) 25 U/L 12-42 eGFR Non- 82.9 > 60 eGFR 106.7 > 60 48 Laboratory test finding 03/30/2012 Hemoglobin A1c 5.6 % Less Than 6.0 49 Lipid Profile (Trig/Chol/HDL) 03/30/2012 Triglyceride 63 mg/dL 40-200 Cholesterol 181 mg/dL Less Than 200 50 High Density Lipoprotein 42 mg/dL 40-60 51 Cholesterol/HDL Ratio 4.31 AVERAGE 1-4.97 Low Density Lipoprotein 126 mg/dL High Less Than 100 52 CBC Auto Diff 03/30/2012 White Blood Count 5.2 CUMM 4.8-10.8 Red Cell Count 4.84 CUMM 4.6-6.2 Hemoglobin 15.7 g/dL 14.0-18.0 Hematocrit 45 % 42-52 Mean Corpuscular Volume 93 um3 80-94 Mean Corpuscular Hemoglob 33 pg High 27-31 Mean Corpuscular HGB Cone 35 g/dL 32-36 Redcell Distribution WDTH 13 % 10.5-15 Platelet Count 117 CUMM Low 150-450 Mean Platelet Volume 9.1 um3 7.4-10.4 Gran % 49.3 % 38-83 Lymph % 36.5 % 20-45 Mononuclear % 10.4 % High 1-9 Eosinophil % 3.1 % 0-6 Basophil % 0.7 % 0-2 Abs Lymphs 1.9 1.0-4.8 Abs Mononuclear 0.5 0-0.8 Absolute Neutrophil Count 2.6 1.5-7.7 Abs Eosinophils 0.2 0-0.6 Abs Basophils 0 0-0.2 Laboratory test finding 03/22/2012 PSA,Diagnostic 0.89 NG/ML 0-4 53 Laboratory test finding 03/13/2011 PSA,Diagnostic 0.99 NG/ML 0-4 54 Basic Metabolic Panel 03/13/2011 Sodium 135 mmol/L 135-145 Potassium 4.0 mmol/L 3.5-5.0 Chloride 105 mmol/L 101-111 Co2 (Carbon Dioxide) 26.0 mmol/L 22-32 Anion Gap 4.0 mmol/L 2-11 55 Glucose 102 mg/dL High 70-100 BUN 12 mg/dL 6-24 Creatinine 1.00 mg/dL 0.50-1.40 One Over Creatinine 1.00 BUN/Creatinine Ratio 12.0 8-20 Calcium 9.0 mg/dL 8.1-9.9 eGFR Non- 73.7 > 60 eGFR 94.7 > 60 56 Urine DIP 08/13/2010 Leukocytes NEG Neg Urine Nitrites NEG Neg Urine pH 5 5-6 Total Protein, Urine NEG Neg Urine Glucose NORM Norm Urine Ketones NEG Neg Urobilinogen NORM Norm Urine Bilirubin NEG Neg Urine Blood 50+ High Neg Specific [place] NA Low 1.01-1.02 Lipid Profile (Trig/Chol/HDL) 03/21/2010 Triglyceride 115 mg/dL 40-200 Cholesterol 178 mg/dL Less Than 200 57 High Density Lipoprotein 28 mg/dL Low 40-60 58 Cholesterol/HDL Ratio 6.36 AVERAGE High 1-4.97 Low Density Lipoprotein 127 mg/dL High Less Than 100 59 Basic Metabolic Panel 03/21/2010 Sodium 139 mmol/L 135-145 Potassium 4.3 mmol/L 3.5-5.0 Chloride 107 mmol/L 101-111 Co2 (Carbon Dioxide) 25.0 mmol/L 22-32 Anion Gap 7.0 mmol/L 2-11 60 Glucose 106 mg/dL High 70-100 61 BUN 17 mg/dL 6-24 Creatinine 1.20 mg/dL 0.50-1.40 One Over Creatinine 0.80 BUN/Creatinine Ratio 14.2 8-20 Calcium 9.3 mg/dL 8.1-9.9 62 eGFR Non- 63.6 > 60 eGFR 77.0 > 60 63 Laboratory test finding 03/15/2010 PSA,Diagnostic 0.80 NG/ML 0-4 64 Urine DIP 09/04/2008 Leukocytes neg Neg Urine Nitrites neg Neg Urine pH 5 5-6 Total Protein, Urine neg Neg Urine Glucose norm Norm Urine Ketones neg Neg Urobilinogen norm Norm Urine Bilirubin neg Neg Urine Blood neg Neg Specific [place] n/a Low 1.01-1.02 Laboratory test finding 08/28/2008 Vitamin B12 614 pg/mL 180-914 26 Comp Metabolic Panel 08/28/2008 Sodium 139 mmol/L 135-145 26 Potassium 4.4 mmol/L 3.5-5.0 26 Chloride 106 mmol/L 101-111 26 Co2 (Carbon Dioxide) 27.0 mmol/L 22-32 26 Anion Gap 6.0 mmol/L 2-11 26, 65 Glucose 101 mg/dL High 70-100 26, 66 BUN 12 mg/dL 6-24 26 Creatinine 1.10 mg/dL 0.50-1.40 26 One Over Creatinine 0.90 26 BUN/Creatinine Ratio 10.9 8-20 26 Calcium 9.3 mg/dL 8.1-9.9 26, 67 Total Protein 6.4 GM/DL 6.2-8.1 26 Albumin 4.0 GM/DL 3.2-5.2 26 Globulin 2.4 GM/DL 2-4 26 Albumin/Globulin Ratio 1.7 1-3 26 Bilirubin Total 1.6 mg/dL High 0.4-1.5 26 Alkaline Phosphatase 50 U/L 39-117 26 Alt (SGPT) 23 U/L 17-63 26 Ast (Sgot) 26 U/L 12-42 26 Lipid Profile (Trig/Chol/HDL) 08/28/2008 Triglyceride 130 mg/dL 40-200 26 Cholesterol 180 mg/dL Less Than 200 26, 68 High Density Lipoprotein 34 mg/dL Low 40-60 26, 69 Cholesterol/HDL Ratio 5.29 AVERAGE High 1-4.97 26 Low Density Lipoprotein 120 mg/dL High Less Than 100 26, 70 Laboratory test finding 08/28/2008 PSA Screening 0.80 NG/ML 0-4 26, 71 CBC With Manual Diff 08/28/2008 White Blood Count 6.1 CUMM 4.8-10.8 26 Red Cell Count 4.91 CUMM 4.6-6.2 26 Hemoglobin 15.3 g/dL 14.0-18.0 26 Hematocrit 45 % 42-52 26 Mean Corpuscular Volume 92 um3 80-94 26 Mean Corpuscular Hemoglob 31 pg 27-31 26 Mean Corpuscular HGB Cone 34 g/dL 32-36 26 Redcell Distribution WDTH 13 % 10.5-15 26 Platelet Count 198 CUMM 150-450 26 Mean Platelet Volume 8.4 um3 7.4-10.4 26 Polysegmented Neutrophil 47 % 38-83 26 Lymphocyte 39 % 25-47 26 Monocyte 10 % 0-13 26 Eosenophil 2 % 0-6 26 Basophil 2 % 0-2 26 Absolute Neutrophil Count 2.8 26 Anisocytosis SLIGHT 26 Urine DIP 08/30/2007 Leukocytes NEG Neg Urine Nitrites NEG Neg Urine pH 5 5-6 Total Protein, Urine NEG Neg Urine Glucose NORM Norm Urine Ketones NEG Neg Urobilinogen NORM Norm Urine Bilirubin NEG Neg Urine Blood NEG Neg Specific [place] NORM Low 1.01-1.02 CBC With Electronic Diff 08/23/2007 White Blood Count 6.2 CUMM 4.8-10.8 26 Abs Basophils 0 0-0.2 26 Abs Eosinophils 0.3 0-0.6 26 Absolute Neutrophil Count 2.4 1.5-7.7 26 Abs Lymphs 3.0 1.0-4.8 26 Abs Mononuclear 0.5 0-0.8 26 Basophil % 0.6 % 0-2 26 Hematocrit 44 % 42-52 26 Hemoglobin 15.0 g/dL 14.0-18.0 26 Eosinophil % 4.3 % 0-6 26 Gran % 38.6 % 38-83 26 Lymph % 47.9 % High 20-45 26 Mean Corpuscular HGB Cone 34 g/dL 32-36 26 Mean Corpuscular Hemoglob 31 pg 27-31 26 Mean Corpuscular Volume 91 um3 80-94 26 Mean Platelet Volume 8.6 um3 7.4-10.4 26 Mononuclear % 8.6 % 1-9 26 Platelet Count 214 CUMM 150-450 26 Red Cell Count 4.88 CUMM 4.6-6.2 26 Redcell Distribution WDTH 13 % 10.5-15 26 Laboratory test finding 08/23/2007 PSA Screening 0.84 NG/ML 0-4 26, 72 Comp Metabolic Panel 08/23/2007 One Over Creatinine 0.90 26 Anion Gap 3.0 mmol/L 2-11 26, 73 Albumin/Globulin Ratio 1.2 1-3 26 Albumin 3.8 GM/DL 3.2-5.2 26 Alkaline Phosphatase 56 U/L 39-117 26 Alt (SGPT) 27 U/L 17-63 26 Ast (Sgot) 26 U/L 12-42 26 BUN 14 mg/dL 6-24 26 Calcium 9.0 mg/dL 8.7-10.2 26 Chloride 107 mmol/L 101-111 26 Co2 (Carbon Dioxide) 28.0 mmol/L 22-32 26 Globulin 3.1 GM/DL 2-4 26 Glucose 100 mg/dL 70-105 26 Potassium 4.4 mmol/L 3.5-5.0 26 Sodium 138 mmol/L 135-145 26 Bilirubin Total 0.9 mg/dL 0.4-1.5 26 Total Protein 6.9 GM/DL 6.2-8.1 26 BUN/Creatinine Ratio 12.7 8-20 26 Creatinine 1.1 mg/dL 0.5-1.4 26 Lipid Profile 08/23/2007 Cholesterol/HDL Ratio 5.37 AVERAGE High 1-4.97 26 (Trig/Chol/HDL) Cholesterol 161 mg/dL Less Than 200 26, 74 Triglyceride 75 mg/dL 40-200 26 High Density Lipoprotein 30 mg/dL Low 40-60 26, 75 Low Density Lipoprotein 116 mg/dL High Less Than 100 26, 76 Laboratory test finding 08/23/2007 Vitamin B12 677 pg/mL 180-914 26 Laboratory test finding 08/27/2006 PSA Screening 0.79 NG/ML 0.01-4.0 26 , 77 Comp Metabolic Panel 08/27/2006 One Over Creatinine 0.90 26 Anion Gap 6.0 mmol/L 2-11 26, 78 Albumin/Globulin Ratio 1.5 1-3 26 Albumin 4.0 GM/DL 3.2-5.2 26 Alkaline Phosphatase 49 U/L 39-117 26 Alt (SGPT) 22 U/L 17-63 26 Ast (Sgot) 23 U/L 12-42 26 BUN 15 mg/dL 6-24 26 Calcium 9.4 mg/dL 8.7-10.2 26 Chloride 108 mmol/L 101-111 26 Co2 (Carbon Dioxide) 28.0 mmol/L 22-32 26 Globulin 2.6 GM/DL 2-4 26 Glucose 101 mg/dL 70-105 26 Potassium 4.4 mmol/L 3.5-5.0 26 Sodium 142 mmol/L 135-145 26 Bilirubin Total 0.7 mg/dL 0.4-1.5 26 Total Protein 6.6 GM/DL 6.2-8.1 26 BUN/Creatinine Ratio 13.6 8-20 26 Creatinine 1.1 mg/dL 0.5-1.4 26 Lipid Profile 08/27/2006 Cholesterol/HDL Ratio 6.10 AVERAGE High 1-4.97 26 (Trig/Chol/HDL) Cholesterol 183 mg/dL Less Than 200 26, 79 Triglyceride 106 mg/dL 40-200 26 High Density Lipoprotein 30 mg/dL Low 40-60 26, 80 Low Density Lipoprotein 132 mg/dL High Less Than 100 26, 81 CBC With Manual Diff 08/27/2006 RBC Morphology NORMAL 26 White Blood Count 6.1 CUMM 4.8-10.8 26 Absolute Neutrophil Count 2.4 26 Atypical Lymph 3 % 0-6 26 Basophil 2 % 0-2 26 Hematocrit 44 % 42-52 26 Hemoglobin 15.6 g/dL 14.0-18.0 26 Eosenophil 5 % 0-6 26 Lymphocyte 45 % 5-47 26 Mean Corpuscular HGB Cone 35 g/dL 32-36 26 Mean Corpuscular Hemoglob 32 pg High 27-31 26 Mean Corpuscular Volume 90 um3 80-94 26 Monocyte 5 % 0-13 26 Mean Platelet Volume 8.4 um3 7.4-10.4 26 Platelet Count 212 CUMM 150-450 26 Polysegmented Neutrophil 40 % 38-83 26 Red Cell Count 4.91 CUMM 4.6-6.2 26 Redcell Distribution WDTH 13 % 10.5-15 26 Urine DIP 08/26/2006 Leukocytes NEG Neg Urine Nitrites NEG Neg Urine pH 5 5-6 Total Protein, Urine NL Neg Urine Glucose NL Norm Urine Ketones NL Neg Urobilinogen NL Norm Urine Bilirubin NL Neg Urine Blood NL Neg Specific [place] N/A Low 1.01-1.02 Laboratory test finding 02/19/2006 PSA Screening 0.94 NG/ML 0.0-4.0 82 Lipid Panel 06/06/2005 Cholesterol, Total 178 Cholesterol/HDL Ratio 5.09 High HDL 35 Low Low Density Lipoprotein 131 High Triglycerides 60 Urine DIP 05/26/2005 Leukocytes NEG Neg Urine Nitrites NEG Neg Urine pH 5 5-6 Total Protein, Urine NEG Neg Urine Glucose NORM Norm Urine Ketones NEG Neg Urobolinogen NORM Norm Urine Bilirubin NEG Neg Urine Blood NEG Neg Specific [place] NA Low 1.01-1.02 Laboratory test finding 07/12/2004 Pathology Report BIOPSY NOSE Urine DIP 05/22/2004 Leukocytes NEG Neg Urine Nitrites NEG Neg Urine pH 5 5-6 Total Protein, Urine NL Neg Urine Glucose NL Norm Urine Ketones NL Neg Urobolinogen NL Norm Urine Bilirubin NL Neg Urine Blood NL Neg Specific [place] N/A Low 1.01-1.02 Laboratory test finding 03/31/2003 Pathology Report BIOPSY-LT THIGH Laboratory test finding 03/31/2003 Surgical Pathology RESULTED @[id number] 83 Laboratory test finding 03/23/2003 Glucose 102 Laboratory test finding 03/23/2003 Vitamin B12 419 pg/mL 180-914 CBC With Manual Diff 03/23/2003 RBC Morphology NORMAL Atypical Lymph 1 % 0-6 Band Neutrophil 1 % 0-8 Eosenophil 7 % High 0-6 Lymphocyte 50 % High 5-47 Monocyte 5 % 0-13 Polysegmented Neutrophil 36 % Low 38-83 Laboratory test finding 01/12/2003 Pathology Report LESION NOSE Urine DIP 12/19/2002 Leukocytes NEG Neg Urine Nitrites NEG Neg Urine pH 5 5-6 Total Protein, Urine NL Neg Urine Glucose NL Norm Urine Ketones NL Neg Urobolinogen NL Norm Urine Bilirubin NL Neg Urine Blood NL Neg Specific [place] N/A Low 1.01-1.02 Laboratory test finding 09/05/2002 Vitamin B12 242 pg/mL 180-914 Folic Acid 11.3 NG/ML 2-16 Urine DIP 01/05/2002 Leukocytes NEG Neg Urine Nitrites NEG Neg Urine pH 5 5-6 Total Protein, Urine NL Neg Urine Glucose NL Norm Urine Ketones NL Neg Urobolinogen NL Norm Urine Bilirubin NL Neg Urine Blood NL Neg Specific [place] N/A Low 1.01-1.02 Laboratory test finding 03/30/2001 Pathology Report PROSTATE 1 Because ethnic data is not always readily available, this report includes an eGFR for both -Americans and non- Americans. The National Kidney Disease Education Program (NKDEP) does not endorse the use of the MDRD equation for patients that are not between the ages of 18 and 70, are , have extremes of body size, muscle mass, or nutritional status, or are non- or non-. According to the National Kidney Foundation, irrespective of diagnosis, the stage of the disease is based on the level of kidney function: Stage Description GFR(mL/min/1.73 m(2)) 1 Kidney damage with normal or decreased GFR 90 2 Kidney damage with mild decrease in GFR 60-89 3 Moderate decrease in GFR 30-59 4 Severe decrease in GFR 15-29 5 Kidney failure <15 (or dialysis) 2 Therapeutic target for the treatment of diabetes mellitus patients is <7% HBA1C, and in selective patients <6.0%. Please refer to [place] [employer] diabetic care guidelines for further information. 3 Because ethnic data is not always readily available, this report includes an eGFR for both -Americans and non- Americans. The National Kidney Disease Education Program (NKDEP) does not endorse the use of the MDRD equation for patients that are not between the ages of 18 and 70, are , have extremes of body size, muscle mass, or nutritional status, or are non- or non-. According to the National Kidney Foundation, irrespective of diagnosis, the stage of the disease is based on the level of kidney function: Stage Description GFR(mL/min/1.73 m(2)) 1 Kidney damage with normal or decreased GFR 90 2 Kidney damage with mild decrease in GFR 60-89 3 Moderate decrease in GFR 30-59 4 Severe decrease in GFR 15-29 5 Kidney failure <15 (or dialysis) 4 Desirable: <150 Borderline High: 150-199 High: 200-499 Very High: >500 5 Desirable: <200 Borderline High: 200-239 High: >239 6 Low: <40 Desirable: 40-60 High: >60 7 Desirable: <100 Near Optimal: 100-129 Borderline High: 130-159 High: 160-189 Very High: >189 8 Normal Range 180 to 914 Indeterminate Range 145 to 180 Deficient Range <145 9 Therapeutic target for the treatment of diabetes Mellitus patients is <7% HBA1C, and in selective patients <6.0%.Please refer to [place] [employer] Diabetic care guidelines for further information. 10 Because ethnic data is not always readily available, this report includes an eGFR for both -Americans and non- Americans. The National Kidney Disease Education Program (NKDEP) does not endorse the use of the MDRD equation for patients that are not between the ages of 18 and 70, are , have extremes of body size, muscle mass, or nutritional status, or are non- or non-. According to the National Kidney Foundation, irrespective of diagnosis, the stage of the disease is based on the level of kidney function: Stage Description GFR(mL/min/1.73 m(2)) 1 Kidney damage with normal or decreased GFR 90 2 Kidney damage with mild decrease in GFR 60-89 3 Moderate decrease in GFR 30-59 4 Severe decrease in GFR 15-29 5 Kidney failure <15 (or dialysis) 11 Desirable <150 Borderline high 150-199 High 200-499 Very High >500 12 Desirable <200 Borderline high 200-239 High >239 13 Low <40 Desirable: 40-60 High: >60 14 Desirable: <100 mg/dL Near Optimal: 100-129 mg/dL Borderline High: 130-159 mg/dL High: 160-189 mg/dL Very High: >189 mg/dL 15 Normal Range 180 to 914 Indeterminate Range 145 to 180 Deficient Range <145 16 SEE RESULT BELOW Name: BRENNON CASTELLANOS : [address]: Rom Medellin MD Acct: [id number] Unit: [id number] AGE: 75 Location: OR Re01/14/16 SEX: M Status: REG [facility] SPEC: [id number] CHARLI: 01/14/16 [facility] DR: Rom Medellin MD REQ: [id number] RECD: 01/14/16 STATUS: JOSE NGO DR: Ashwin Campos MD _ ORDERED: CONSULT W/ FS, FS ADDITIONAL, LEVEL IV/3 FINAL DIAGNOSIS 1. Skin, left nasal dorsum, excision: -- Scar, excised, and adjacent benign skin with mild actinic change. -- No evidence of neoplasia. 2. Skin, left nasal dorsum, wider 10-2:00 margin, excision: -- Benign skin with mild actinic change. -- No evidence of neoplasia. 3. Skin, left nasal dorsum, wider 4-8:00 margin, excision: -- Benign skin with mild actinic change. -- No evidence of neoplasia. COMMENT: The previous lesion at this site ([id number]) has been completely excised. PATHOLOGY SURGICAL CONSULT Frozen section (FS)/Touch Prep (TP)/Gross Consult (GC) FS1) Left nasal dorsum, excision squamous cell carcinoma: No residual squamous cell carcinoma. (DS) Dr. Medellin notified at 0844 on 01/14/16. CONTINUED ON NEXT PAGE * ML=Testing performed at Main Lab DEPARTMENT OF PATHOLOGY, [address] [place] [address] Julio César Cohen M.D. Director [facility] # [id number] RUN DATE: 01/15/16 [facility] LAB LIVE PAGE 2 Patient: BRENNON CASTELLANOS [id number] (Continued) PRE-OPERATIVE DIAGNOSIS (Continued) PRE-OPERATIVE DIAGNOSIS Squamous cell carcinoma left nasal dorsum 1) suture marshall 12:00 superior margin, 2) suture marshall true 12 o'clock margin, 3) suture marshall true 6 o'clock margin GROSS DESCRIPTION 1. The specimen is received in formalin labeled, Excision Squamous Cell Carcinoma Left Nasal Dorsum, Suture Marshall at 12:00 Superior Margin, and consists of a 0.7 x 0.7 cm tomlin-pink ovoid skin fragment excised to a maximum depth of 0.3 cm. There is an attached suture, which designates the 12:00 superior margin. The specimen is inked as follows : 9:00 half black, 3:00 half blue and 12:00 end green, trisected from 12:00 to 6:00 and entirely submitted for frozen section microscopy. The frozen section residue is submitted in cassettes AFS and BFS to include ends in cassette AFS. 2. The specimen is received in formalin labeled, Wider 10-2 Margin Suture Marshall True 12:00 Margin, and consists of a 0.6 x 0.5 cm tomlin-pink triangular skin fragment excised to a depth of 0.2 cm. There is a suture attached to one long axis, which designates the true 12:00 margin. The specimen is inked as follows: 9:00 half black, 3:00 half blue and 12:00 tip green, bisected and entirely submitted in one cassette. 3. The specimen is received in formalin labeled, Wider 4:00-8:00 Margin Suture Marshall True 6:00 Margin, and consists of a 0.6 x 0.5 cm tomlin-pink triangular skin fragment excised to a depth of 0.3 cm. There is a suture attached to one long axis, which designates the true 6:00 margin. The specimen is inked as follows: 9:00 half black, 3:00 half blue and 6:00 tip green, bisected and entirely submitted in one cassette. Signed (signature on file) Eli Pace MD 02/22 1046 END OF REPORT * ML=Testing performed at Main Lab DEPARTMENT OF PATHOLOGY, [address] [place] [address] Julio César Cohen M.D. Director [facility] # [id number] 17 Therapeutic target for the treatment of diabetes Mellitus patients is <7% HBA1C, and in selective patients <6.0%.Please refer to [place] [employer] Diabetic care guidelines for further information. 18 Because ethnic data is not always readily available, this report includes an eGFR for both -Americans and non- Americans. The National Kidney Disease Education Program (NKDEP) does not endorse the use of the MDRD equation for patients that are not between the ages of 18 and 70, are , have extremes of body size, muscle mass, or nutritional status, or are non- or non-. According to the National Kidney Foundation, irrespective of diagnosis, the stage of the disease is based on the level of kidney function: Stage Description GFR(mL/min/1.73 m(2)) 1 Kidney damage with normal or decreased GFR 90 2 Kidney damage with mild decrease in GFR 60-89 3 Moderate decrease in GFR 30-59 4 Severe decrease in GFR 15-29 5 Kidney failure <15 (or dialysis) 19 Desirable <150 Borderline high 150-199 High 200-499 Very High >500 20 Desirable <200 Borderline high 200-239 High >239 21 Low <40 Desirable: 40-60 High: >60 22 Desirable: <100 mg/dL Near Optimal: 100-129 mg/dL Borderline High: 130-159 mg/dL High: 160-189 mg/dL Very High: >189 mg/dL 23 Normal Range 180 to 914 Indeterminate Range 145 to 180 Deficient Range <145 24 Serum levels of PSA measured using the Chris Tracie DXI Hybritech immunoassay should not be interpreted as absolute evidence of the presence or absence of disease. The PSA value should be used in conjunction with other pertinent clinical diagnostic procedures. The values obtained with different assay methods or kits cannot be used interchangeably. 25 Because ethnic data is not always readily available, this report includes an eGFR for both -Americans and non- Americans. The National Kidney Disease Education Program (NKDEP) does not endorse the use of the MDRD equation for patients that are not between the ages of 18 and 70, are , have extremes of body size, muscle mass, or nutritional status, or are non- or non-. According to the National Kidney Foundation, irrespective of diagnosis, the stage of the disease is based on the level of kidney function: Stage Description GFR(mL/min/1.73 m(2)) 1 Kidney damage with normal or decreased GFR 90 2 Kidney damage with mild decrease in GFR 60-89 3 Moderate decrease in GFR 30-59 4 Severe decrease in GFR 15-29 5 Kidney failure <15 (or dialysis) 26 FASTING 27 Therapeutic target for the treatment of diabetes Mellitus patients is <7% HBA1C, and in selective patients <6.0%.Please refer to [place] [employer] Diabetic care guidelines for further information. 28 Because ethnic data is not always readily available, this report includes an eGFR for both -Americans and non- Americans. The National Kidney Disease Education Program (NKDEP) does not endorse the use of the MDRD equation for patients that are not between the ages of 18 and 70, are , have extremes of body size, muscle mass, or nutritional status, or are non- or non-. According to the National Kidney Foundation, irrespective of diagnosis, the stage of the disease is based on the level of kidney function: Stage Description GFR(mL/min/1.73 m(2)) 1 Kidney damage with normal or decreased GFR 90 2 Kidney damage with mild decrease in GFR 60-89 3 Moderate decrease in GFR 30-59 4 Severe decrease in GFR 15-29 5 Kidney failure <15 (or dialysis) 29 Normal Range 180 to 914 Indeterminate Range 145 to 180 Deficient Range <145 30 REFERENCE VALUE 25-HYDROXY D TOTAL (D2+D3) Optimum levels in the healthy population are 20-50, patients with bone disease may benefit from higher levels within this range. Test Performed by: [address] [address] Order Dispatcher: Shan Cao M.D. 31 Desirable <150 Borderline high 150-199 High 200-499 Very High >500 32 Desirable <200 Borderline high 200-239 High >239 33 Low <40 Desirable: 40-60 High: >60 34 Desirable <100 Near Optimal 100-129 Borderline high 130-159 High 160-189 Very High >189 35 Serum levels of PSA measured using the Chris Tracie DXI Hybritech immunoassay should not be interpreted as absolute evidence of the presence or absence of disease. The PSA value should be used in conjunction with other pertinent clinical diagnostic procedures. The values obtained with different assay methods or kits cannot be used interchangeably. 36 Therapeutic target for the treatment of diabetes Mellitus patients is <7% HBA1C, and in selective patients <6.0%.Please refer to [place] [employer] Diabetic care guidelines for further information. 37 Because ethnic data is not always readily available, this report includes an eGFR for both -Americans and non- Americans. The National Kidney Disease Education Program (NKDEP) does not endorse the use of the MDRD equation for patients that are not between the ages of 18 and 70, are , have extremes of body size, muscle mass, or nutritional status, or are non- or non-. According to the National Kidney Foundation, irrespective of diagnosis, the stage of the disease is based on the level of kidney function: Stage Description GFR(mL/min/1.73 m(2)) 1 Kidney damage with normal or decreased GFR 90 2 Kidney damage with mild decrease in GFR 60-89 3 Moderate decrease in GFR 30-59 4 Severe decrease in GFR 15-29 5 Kidney failure <15 (or dialysis) 38 FASTING 39 -- REFERENCE VALUE -- 25-HYDROXY D TOTAL (D2+D3) Optimum levels in the healthy population are 20-50, patients with bone disease may benefit from higher levels within this range. Test Performed by: [address] [address] Order Dispatcher: Nick Langston III, M.D. 40 Serum levels of PSA measured using the Chris [employer] DXI Hybritech immunoassay should not be interpreted as absolute evidence of the presence or absence of disease. The PSA value should be used in conjunction with other pertinent clinical diagnostic procedures. The values obtained with different assay methods or kits cannot be used interchangeably. 41 Because ethnic data is not always readily available, this report includes an eGFR for both -Americans and non- Americans. The National Kidney Disease Education Program (NKDEP) does not endorse the use of the MDRD equation for patients that are not between the ages of 18 and 70, are , have extremes of body size, muscle mass, or nutritional status, or are non- or non-. According to the National Kidney Foundation, irrespective of diagnosis, the stage of the disease is based on the level of kidney function: Stage Description GFR(mL/min/1.73 m(2)) 1 Kidney damage with normal or decreased GFR 90 2 Kidney damage with mild decrease in GFR 60-89 3 Moderate decrease in GFR 30-59 4 Severe decrease in GFR 15-29 5 Kidney failure <15 (or dialysis) 42 RUN DATE: 11/04/12 [facility] LAB LIVE PAGE 1 RUN TIME: [address] [place] [id number] Specimen Inquiry Name: BRENNON CASTELLANOS : [address]: Ryan Hernandez MD Acct: [id number] Unit: [id number] AGE: 72 Location: ED Re11/04/12 SEX: M Status: REG ER SPEC: [id number] CHARLI: 11/04/[address]: Ryan Hernandez MD REQ: [id number] RECD: 11/04/12 STATUS: COMP OTHR DR: Ashwin Hayward MD _ SOURCE: STOOL SPDESC: ORDERED: Hemoccult COMMENTS: Comment: sent to lab already Procedure Result Verified Site Stool Occult Blood Final 11/04/12- 1829 ML Stool Occult Blood Negative END OF REPORT * ML=Testing performed at Main Lab DEPARTMENT OF PATHOLOGY, [address] [place] [address] Julio César Cohen M.D. Director [facility] Permit #[id number] 43 Because ethnic data is not always readily available, this report includes an eGFR for both -Americans and non- Americans. The National Kidney Disease Education Program (NKDEP) does not endorse the use of the MDRD equation for patients that are not between the ages of 18 and 70, are , have extremes of body size, muscle mass, or nutritional status, or are non- or non-. According to the National Kidney Foundation, irrespective of diagnosis, the stage of the disease is based on the level of kidney function: Stage Description GFR(mL/min/1.73 m(2)) 1 Kidney damage with normal or decreased GFR 90 2 Kidney damage with mild decrease in GFR 60-89 3 Moderate decrease in GFR 30-59 4 Severe decrease in GFR 15-29 5 Kidney failure <15 (or dialysis) 44 Reference Range and Interpretation: TnI (ng/ml) Interpretation Less Than 0.06 ng/mL Not supportive of diagnosis of TN 0.06 - 0.50 ng/ml Indeterminate: suggest serial studies if clinically indicated. Greater than 0.5 ng/mL Consistent with diagnosis of TN 45 The detection limit for ETHANOL is 10.0 mg/dl . Values less than 10.0 mg/dl cannot be accurately measured. 46 Anion gap measurement may be of limited value in the presence of any alkalosis, especially in a combined acid base disorder. . 47 A metabolite of Naproxen, O-desmethylnaproxen, has been shown to interfere with the Jendrassik-Shelli method for measuring total bilirubin. Samples from patients who have taken Naproxen have shown spurious elevation in total bilirubin levels. 48 Because ethnic data is not always readily available, this report includes an eGFR for both -Americans and non- Americans. The National Kidney Disease Education Program (NKDEP) does not endorse the use of the MDRD equation for patients that are not between the ages of 18 and 70, are , have extremes of body size, muscle mass, or nutritional status, or are non- or non-. According to the National Kidney Foundation, irrespective of diagnosis, the stage of the disease is based on the level of kidney function: Stage Description GFR(mL/min/1.73 m(2)) 1 Kidney damage with normal or decreased GFR 90 2 Kidney damage with mild decrease in GFR 60-89 3 Moderate decrease in GFR 30-59 4 Severe decrease in GFR 15-29 5 Kidney failure <15 (or dialysis) 49 THERAPEUTIC TARGET FOR THE TREATMENT OF DIABETES MELLITUS PATIENTS IS <7% HBA1C, AND IN SELECTIVE PATIENTS <6.0%. PLEASE REFER TO [place] [employer] DIABETIC CARE GUIDELINES FOR FURTHER INFORMATION. 50 CHOLESTEROL INTERPRETATION: Desirable: Less than 200 MG/DL Borderline-High Risk: 200-239 MG/DL High-Risk: 240 MG/DL and over 51 HDL INTERPRETATION: Undesirable: High Risk: Less than 40 MG/DL Desirable: Low Risk: Greater than 60 MG/DL 52 LDL INTERPRETATION: Low Risk Optimal Level: LDL Less than 100 MG/DL Near or Above Optimal: LDL 100-129 MG/DL Borderline High Risk: LDL 130-159 MG/DL High Risk: LDL 160-189 MG/DL Very High Risk: LDL Greater than 189 MG/DL 53 * SERUM LEVELS OF PSA MEASURED USING THE [employer] Software ACCESS HYBRITECH IMMUNOASSAY SHOULD NOT BE INTERPRETED ABSOLUTE EVIDENCE OF THE PRESENCE OR ABSENCE OF DISEASE. THE PSA VALUE SHOULD BE USED IN CONJUNCTION WITH OTHER PERTINENT CLINICAL DIAGNOSTIC PROCEDURES. The values obtained with different assay methods or kits cannot be used interchangeably. 54 * SERUM LEVELS OF PSA MEASURED USING THE [employer] Analytics Software ACCESS HYBRITECH IMMUNOASSAY SHOULD NOT BE INTERPRETED ABSOLUTE EVIDENCE OF THE PRESENCE OR ABSENCE OF DISEASE. THE PSA VALUE SHOULD BE USED IN CONJUNCTION WITH OTHER PERTINENT CLINICAL DIAGNOSTIC PROCEDURES. 55 Anion gap measurement may be of limited value in the presence of any alkalosis, especially in a combined acid base disorder. . 56 Because ethnic data is not always readily available, this report includes an eGFR for both -Americans and non- Americans. The National Kidney Disease Education Program (NKDEP) does not endorse the use of the MDRD equation for patients that are not between the ages of 18 and 70, are , have extremes of body size, muscle mass, or nutritional status, or are non- or non-. According to the National Kidney Foundation, irrespective of diagnosis, the stage of the disease is based on the level of kidney function: Stage Description GFR(mL/min/1.73 m(2)) 1 Kidney damage with normal or decreased GFR 90 2 Kidney damage with mild decrease in GFR 60-89 3 Moderate decrease in GFR 30-59 4 Severe decrease in GFR 15-29 5 Kidney failure <15 (or dialysis) 57 CHOLESTEROL INTERPRETATION: Desirable: Less than 200 MG/DL Borderline-High Risk: 200-239 MG/DL High-Risk: 240 MG/DL and over 58 HDL INTERPRETATION: Undesirable: High Risk: Less than 40 MG/DL Desirable: Low Risk: Greater than 60 MG/DL 59 LDL INTERPRETATION: Low Risk Optimal Level: LDL Less than 100 MG/DL Near or Above Optimal: LDL 100-129 MG/DL Borderline High Risk: LDL 130-159 MG/DL High Risk: LDL 160-189 MG/DL Very High Risk: LDL Greater than 189 MG/DL 60 Anion gap measurement may be of limited value in the presence of any alkalosis, especially in a combined acid base disorder. . 61 Note change in reference range as of 03/30/08. The change was based on recommendations from the [place] [employer]. 62 Please note change in reference range effective 08 . 63 Because ethnic data is not always readily available, this report includes an eGFR for both -Americans and non- Americans. The National Kidney Disease Education Program (NKDEP) does not endorse the use of the MDRD equation for patients that are not between the ages of 18 and 70, are , have extremes of body size, muscle mass, or nutritional status, or are non- or non-. According to the National Kidney Foundation, irrespective of diagnosis, the stage of the disease is based on the level of kidney function: Stage Description GFR(mL/min/1.73 m(2)) 1 Kidney damage with normal or decreased GFR 90 2 Kidney damage with mild decrease in GFR 60-89 3 Moderate decrease in GFR 30-59 4 Severe decrease in GFR 15-29 5 Kidney failure <15 (or dialysis) 64 * SERUM LEVELS OF PSA MEASURED USING THE [employer] Software ACCESS HYBRITECH IMMUNOASSAY SHOULD NOT BE INTERPRETED ABSOLUTE EVIDENCE OF THE PRESENCE OR ABSENCE OF DISEASE. THE PSA VALUE SHOULD BE USED IN CONJUNCTION WITH OTHER PERTINENT CLINICAL DIAGNOSTIC PROCEDURES. 65 Anion gap measurement may be of limited value in the presence of any alkalosis, especially in a combined acid base disorder. . 66 Note change in reference range as of 03/30/08. The change was based on recommendations from the [place] [employer]. 67 Please note change in reference range effective 08 . 68 CHOLESTEROL INTERPRETATION: Desirable: Less than 200 MG/DL Borderline-High Risk: 200-239 MG/DL High-Risk: 240 MG/DL and over 69 HDL INTERPRETATION: Undesirable: High Risk: Less than 40 MG/DL Desirable: Low Risk: Greater than 60 MG/DL 70 LDL INTERPRETATION: Low Risk Optimal Level: LDL Less than 100 MG/DL Near or Above Optimal: LDL 100-129 MG/DL Borderline High Risk: LDL 130-159 MG/DL High Risk: LDL 160-189 MG/DL Very High Risk: LDL Greater than 189 MG/DL 71 * SERUM LEVELS OF PSA MEASURED USING THE [employer] Software ACCESS HYBRITECH IMMUNOASSAY SHOULD NOT BE INTERPRETED ABSOLUTE EVIDENCE OF THE PRESENCE OR ABSENCE OF DISEASE. THE PSA VALUE SHOULD BE USED IN CONJUNCTION WITH OTHER PERTINENT CLINICAL DIAGNOSTIC PROCEDURES. 72 * SERUM LEVELS OF PSA MEASURED USING THE CHRIS smsPREP ACCESS HYBRITECH IMMUNOASSAY SHOULD NOT BE INTERPRETED ABSOLUTE EVIDENCE OF THE PRESENCE OR ABSENCE OF DISEASE. THE PSA VALUE SHOULD BE USED IN CONJUNCTION WITH OTHER PERTINENT CLINICAL DIAGNOSTIC PROCEDURES. 73 Anion gap measurement may be of limited value in the presence of any alkalosis, especially in a combined acid base disorder. . 74 Classification: Desirable . 75 Classification: Low . 76 CALCULATED LDL APPROXIMATES THE VALUE OF A DIRECT LDL MEASUREMENT. Classification: Near or above optimal . 77 * SERUM LEVELS OF PSA MEASURED USING THE CHRIS smsPREP ACCESS HYBRITECH IMMUNOASSAY SHOULD NOT BE INTERPRETED ABSOLUTE EVIDENCE OF THE PRESENCE OR ABSENCE OF DISEASE. THE PSA VALUE SHOULD BE USED IN CONJUNCTION WITH OTHER PERTINENT CLINICAL DIAGNOSTIC PROCEDURES. 78 Anion gap measurement may be of limited value in the presence of any alkalosis, especially in a combined acid base disorder. . 79 Classification: Desirable . 80 Classification: Low . 81 CALCULATED LDL APPROXIMATES THE VALUE OF A DIRECT LDL MEASUREMENT. Classification: Borderline High . 82 * SERUM LEVELS OF PSA MEASURED USING THE CHRIS smsPREP ACCESS HYBRITECH IMMUNOASSAY SHOULD NOT BE INTERPRETED ABSOLUTE EVIDENCE OF THE PRESENCE OR ABSENCE OF DISEASE. THE PSA VALUE SHOULD BE USED IN CONJUNCTION WITH OTHER PERTINENT CLINICAL DIAGNOSTIC PROCEDURES. 83 See [facility] Report Procedures Date CPT Code Description Status Comment 01/26/2018 33501 EKG, at Least 12 Leads Completed w/Interpretation and Report 05/29/2015 33440 EKG, at Least 12 Leads Completed w/Interpretation and Report 08/04/2013 29403 Nebulizer Treatment Completed 07/10/2012 Colonoscopy Completed Normal, no polyps. Repeat recommended 2021. (2002-Normal) 05/05/2012 48980 EKG, at Least 12 Leads Completed w/Interpretation and Report 09/05/2009 34037 Audiometric Screening Test, Completed Pure Tone, Air Only 05/26/2005 50794 EKG, at Least 12 Leads Completed w/Interpretation and Report 03/31/2003 40837 BX Of Skin,Tissue, Mucous Completed Membran Encounters Type Date Location Provider CPT E/M Dx Office Visit 11/10/2017 2:30p Main Office Pedro Han III, COLLECTION CARD CLERK-C 91584 R11.10 R19.7 Office Visit 08/26/2017 8:45a Main Office Ashwin Hayward M.D. G0439 Z00.00 J45.909 R73.01 D51.3 M54.5 D69.6 J34.1 Office Visit 02/25/2017 11:30a Main Office Ashwin Hayward M.D. 49939 R25.2 Office Visit 08/21/2016 10:00a Main Office Ashwin Hayward M.D. G0439 Z00.00 R73.01 D51.3 J45.909 D69.6 M54.5 J31.0 e78.00 E78.00 Z23 D51.9 Office Visit 05/19/2016 11:45a Main Office GINNA Benson 93535 H10.023 Office Visit 05/29/2015 1:15p Main Office Ashwin Hayawrd M.D. G0439 Z00.01 J45.909 D51.3 R73.01 D69.6 M54.5 Z23 Office Visit 05/19/2014 9:00a Main Office Ashwin Hayward M.D. G0438 V70.0 724.3 493.90 787.1 281.1 268.9 V05.3 Office Visit 01/12/2014 11:30a Main Office Ashwin Hayward M.D. 19489 088.81 Office Visit 12/12/2013 10:45a Main Office ESTHER Rebollar 71022 916.6 Office Visit 08/04/2013 2:15p [facility] Office [facility] [address] 486 Office Visit 03/22/2013 1:00p Main Office Crystal Aguilar M.D. 52766 466.0 493.90 Office Visit 11/05/2012 10:45a Main Office Ashwin Hayward M.D. 10279 386.10 564.09 526.0 Office Visit 05/05/2012 2:15p Main Office Ashwin Hayward M.D. 86461 V70.0 493.90 477.9 787.1 266.9 V06.1 Office Visit 03/23/2012 2:00p Main Office Ashwin Hayward M.D. 23409 493.90 454.1 690.10 Office Visit 07/04/2011 10:30a Main Office Amada Oquendo M.D. 31492 916.4 E906.4 461.0 Office Visit 06/30/2011 2:30p Main Office Estephanie Ricketts M.D. 91483 461.0 Office Visit 06/23/2011 3[facility]15p [facility] 8[facility] 693.0 466.0 Office Visit 06/16/2011 2:30p Main Office Drew Guzman [facility] 58044 466.0 Office Visit 08/13/2010 1:15p Main Office Ashwin Hayward M.D. 39474 V70.0 530.81 493.90 472.0 782.9 V03.82 302.72 Office Visit 04/29/2010 2:15p [facility] 31326 530.81 493.90 Office Visit 03/22/2010 9:30a Main Office Raina Peralta PA-C 87712 493.90 472.0 Office Visit 09/05/2009 2:15p Main Office Ashwin Hayward M.D. 25926 389.9 702.0 Office Visit 05/01/2009 4:00p Main Office Ashwin Hayward M.D. 30287 493.90 472.0 Office Visit 01/26/2009 11:15a Main Office Ashwin Hayward M.D. 46118 724.3 Office Visit 09/04/2008 12:45p Main Office Nacho Gaxiola M.D. 44086 781.0 454.1 386.10 365.9 281.1 600.00 V76.51 V05.8 Office Visit 05/22/2008 3:45p Main Office Franck Humphre[facility] 94489 493.92 477.9 Office Visit 04/20/2008 2:30p Main Office Franck Hupmhries.N.P.C. 14533 477.9 493.92 Office Visit 08/30/2007 12:45p Main Office Nacho Gaxiola M.D. 80536 781.0 454.1 477.9 386.10 365.9 724.2 600.00 702.0 Office Visit 07/17/2007 11:00a Main Office Debrajair Soren Guzman [facility] 66599 477.9 386.10 Office Visit 06/16/2007 4:15p Main Office Nacho Gaxiola M.D. 95504 454.1 281.1 Office Visit 08/26/2006 1:45p Main Office Nacho Gaxiola M.D. 78257 454.1 365.9 724.2 281.1 600.00 V76.9 Office Visit 05/26/2005 1:45p Main Office Nacho Gaxiola M.D. 19351 V70.0 600.00 600 702.0 700 V76.9 V04.81 Office Visit 09/13/2004 2:15p Main Office Ashwin Hayward M.D. 46072 465.9 682.9 Office Visit 05/22/2004 1:30p Main Office Nacho Gaxiola M.D. 89540 232.3 600.00 600 472.0 365.9 848.3 724.2 V76.9 Office Visit 02/05/2004 4:45p Main Office Nacho Gaxiola M.D. 00210 686.00 Office Visit 11/24/2003 2:45p Main Office Cris Humphries 35455 782.2 Office Visit 04/07/2003 2:30p Main Office Ashwin Hayward M.D. 14103 V58.3 Office Visit 03/31/2003 10:15a Main Office Nacho Gaxiola M.D. 91796 686.00 Office Visit 03/23/2003 3:00p Main Office Nacho Gaxiola M.D. 59250 680.3 Office Visit 03/03/2003 3:30p Main Office Julia Edouard M.D. 91023 680.3 Office Visit 01/28/2003 9:45a Main Office Crystal Aguilar M.D. 62983 681.02 Office Visit 12/19/2002 1:45p Main Office Nacho Gaxiola M.D. 44077 333.99 454.9 232.3 365.9 Office Visit 09/05/2002 2:45p Main Office Nacho Gaxiola M.D. 15095 232.3 529.0 Office Visit 01/05/2002 3:30p Main Office Nacho Gaxiola M.D. 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
[2018-02-22 13:08] LABS: EGFR Non-African American 73.1 (>60)
--- NOTE | 2018-02-22 13:11 | RAD ---
INDICATION: Chest pain COMPARISON: October 31, 2012 TECHNIQUE: An AP portable view obtained at 1258 hours is submitted. FINDINGS: Bones/Soft Tissues: There are no acute bony findings. Cardiomediastinal: The cardiomediastinal silhouette is normal. Lungs: There are no infiltrates. Pleura: There are no pleural effusions. Other: None IMPRESSION: NO ACTIVE DISEASE.
[2018-02-22] MEDS ORDERED: NS 0.9% 1000 ML* 2,000 ML IV ONE (15:23)
[2018-02-22] MEDS ORDERED: Pantoprazole IV* 40 MG IV ONE (15:24)
[2018-02-22] MEDS ORDERED: Ketorolac INJ* 30 MG/ML 1 ML VIAL IV PUSH ONE (15:27)
[2018-02-22] MEDS ORDERED: Al Hydrox/Mg Hydrox/Simet LIQ* 30 ML UDC PO PRN (17:24)
[2018-02-22] MEDS ORDERED: Acetaminophen TAB* 325 MG PO PRN (17:24)
[2018-02-22] MEDS ORDERED: Latanoprost 0.005%* 2.5 ml BTL BOTH EYES SCH (21:00)
[2018-02-22] MEDS: Heparin VIAL(*) 5000 UNITS/ML VIAL (FIVE THOUSAND) SUBCUT SCH (22:10)
--- NOTE | 2018-02-23 00:08 | HP ---
CC: Dr. Hayward * HISTORY AND PHYSICAL: DATE OF ADMISSION: 02/22/18 PROVIDER: Marnie Subramanian NP PRIMARY CARE PROVIDER: Dr. Hayward. ATTENDING PHYSICIAN WHILE IN THE HOSPITAL: Dr. Deirdre Macdonald * (report dictated by Marnie Subramanian NP) CHIEF COMPLAINT: Chest pain. HISTORY OF PRESENT ILLNESS: Mr. Ya is a 78-year-old male patient with a history of glaucoma, enlarged prostate, and chronic lower back pain. He reports mild asthma, who presented to the emergency room with complaints of chest pain. The patient reports that yesterday while eating lunch, he developed a knot in his upper gastric area. He took some baking soda after lunch and states that he had multiple episodes of belching, which did help relieve his upper gastric pain. He states then he was able to eat dinner and felt better. He reports that this morning at approximately 4 a.m. he woke up with left shoulder pain. He states at that time he took ibuprofen 800 mg and was able to go back to sleep. The patient states that today, he vacuumed his entire downstairs and then scrubbed the tile floors. He did not have any chest pain at that time. He was not short of breath. He was not diaphoretic. He states that he finished completing those chores at approximately 9 a.m. He states at approximately 10 a.m., he developed some chest pain that progressively got worse, so he presented to the emergency room. He reports that his chest pain just continued to get worse and worse while in the emergency room until they gave him some medications that relieved his symptoms. The patient reports that he does 30 minutes of walking on the treadmill daily. He reports that he does not develop chest pain or shortness of breath when walking on the treadmill. He does yoga and stretching again without development of chest pain or shortness of breath. He denies any nocturnal dyspnea or orthopnea. He does report that he has had increased stress in his life as his he is caring for recently had a knee replacement and has been entertaining family, which has been stressful for him. He denies any recent illnesses or fevers. Denies any edema. Denies any cough, congestion, or hemoptysis. Denies any nausea, vomiting, or diarrhea. Denies any abdominal pain. Denies any gross hematuria or dysuria. Denies any focal weakness or sensory loss. Denies any visual complaints. Denies any dysphagia. Denies any arthralgias or myalgias. Denies any rashes or lesions. Denies any psychosis. He does report some increased stress and anxiety related to caring for his who recently had her knee replaced and recent visits from families and friends. The patient does continue to report left shoulder pain, worse with palpation. He also states that he has increased chest pain with deep breath and mild chest pain that is reproducible with palpation to the left and right lateral chest. He describes his pain as tightness and currently rated at a 1 when he takes a deep breath. PAST MEDICAL HISTORY: Significant for: 1. Glaucoma. 2. Enlarged prostate. 3. History of varicose vein stripping. 4. Chronic lower back pain. 5. Mild asthma. PAST SURGICAL HISTORY: Varicose vein stripping. HOME MEDICATIONS: Include: 1. Aspirin 81 mg p.o. daily. 2. Ibuprofen 600 mg p.o. p.r.n. 3. Ipratropium bromide as needed. 4. Vitamin D every other day. 5. Calcium daily. 6. Flovent Diskus daily as needed. 7. Vitamin B12 every other day. 8. Cumin 1 every other day. 9. Latanoprost 0.05% eye drops one drop to both eyes at bedtime. 10. Potassium 99 mg p.o. daily. 11. [place]-3 fatty acids 1 cap p.o. daily. 12. Multivitamin 1 tablet daily. 13. Refresh Tears 0.5 b.i.d. ALLERGIES TO MEDICATIONS: He is allergic to PENICILLIN and STREPTOMYCIN. FAMILY HISTORY: Grandfather with an UT in his 60s. No reported diabetes, no history of cancer. SOCIAL HISTORY: Denies any tobacco use. Does report occasional alcohol use. Does report recently trying medical marijuana x1 and subsequently felt terrible with nausea and vomiting, sweaty. He is retired. He is . Surrogate decision maker in the event he is unable to make his own decisions is his , Cherelle Hannah. Her phone number is [phone]. He is a full code. REVIEW OF SYSTEMS: There is no documented fever. No unintended weight loss. He does report chest pain that is described as a tightness across his entire upper chest, worse with deep breath. He denies any cough. Denies any hemoptysis or shortness of breath. Denies any nausea, vomiting, or diarrhea. Denies any abdominal pain. Denies any hematuria or dysuria. Denies any focal weakness or sensory loss. Denies any visual complaints. Denies any dysphagia. Denies any arthralgias or myalgias. Denies any rashes or lesions. Denies any psychosis. Does report some increased stress and anxiety related to care of his status post her knee surgery. PHYSICAL EXAMINATION GENERAL: At this time, Mr. Ya is a 78-year-old male, who appears well, sitting on the stretcher in the emergency room. He does not appear to be in any acute distress. VITAL SIGNS: Temperature was 99.1, heart rate was 77, respirations were 18, O2 saturation 94%, and blood pressure 120/76. HEENT: Head is atraumatic, normocephalic. Eyes: EOMs are intact. Sclerae anicteric and not pale. Oral mucosa appears to be dry. There is no oropharyngeal erythema. NECK: Supple. LUNGS: Clear to auscultation bilaterally. No wheezes, rales, or rhonchi. CARDIAC: S1, S2. Regular rate and rhythm. ABDOMEN: Soft and nontender. Bowel sounds are active x4. EXTREMITIES: Pulses are +2 throughout. He is able to move all 4 extremities with 5/5 strength. NEUROLOGIC: He is alert and oriented x3. Speech is clear. There are no gross focal deficits. SKIN: Intact. DIAGNOSTIC STUDIES AND LABORATORY DATA: WBCs were 8.7, RBCs 4.76. Hemoglobin was 14.9, hematocrit was 44, platelet count was 156. Sodium 137, potassium 3.6 , chloride 102, carbon dioxide was 28, anion gap was 7, BUN was 15, creatinine 0.99, lactic acid was 0.7, calcium 9.5, total bilirubin was 1.50, AST was 21, ALT was 17, troponins were 0.00 and 0.01. Third troponin is pending. EKG showed sinus rhythm at a rate of 77. Chest x-ray: Radiologist's impression: No active disease. ASSESSMENT AND PLAN: Mr. Ya is a 78-year-old male, who presented to the emergency room complaining of chest pain worse with deep breath. We were asked to see and evaluate him due to his chest pain. He will be admitted under observation for: 1. Chest pain. His ROSAURA score is a 2 giving him an 8% risk at 14 days of all- cause mortality, new or recurrent myocardial infarction or severe recurrent ischemia requiring urgent revascularization. The patient will continue to have his troponins trended. Currently, they are negative at 0.00 and 0.01. Third troponin is pending. We will order a nuclear exercise stress for tomorrow morning. He will be n.p.o. after midnight for his nuclear stress. I suspect that his chest pain could be related to musculoskeletal as well as he did report relief with Toradol and omeprazole. He may also have underlying acid reflux, mild gastritis as he does take ibuprofen at home. He denies any black or tarry stools at this time. 2. Glaucoma. He will continue his latanoprost eye drops at bedtime. 3. Mild asthma. The patient does use a Atrovent inhaler as needed at home. He says he uses this very rarely. He also uses Flovent Diskus, again he says he uses this rarely. We will hold these medications at this time as the patient does not have any symptoms of shortness of breath or wheezing at this time. 4. FEN. The patient will be placed on a heart-healthy, decaf-okay diet. 5. Code status. He is a full code. 6. DVT prophylaxis. I will place him on heparin 5000 units subcu. 7. Disposition. He will be placed on observation for chest pain, rule out acute coronary syndrome. TIME SPENT: Time spent on this admission was approximately 60 minutes, greater than half that time was spent [id number] with the patient obtaining my history and physical. The other half the time was spent going over my plan of care and implementing my plan of care. I have discussed this with my attending, Dr. Deirdre Macdonald, and she is in agreement with my plan. MARNIE SUBRAMANIAN, ELISEO [id number]/[facility] #: [id number] CHAD
[2018-02-23] MEDS: Heparin VIAL(*) 5000 UNITS/ML VIAL (FIVE THOUSAND) SUBCUT SCH (05:55)
[2018-02-23 06:08] LABS: ABS Basophils 0 10^3/ul (0-0.2); ABS Eosinophils 0.1 10^3/ul (0-0.6); ABS Lymphocytes 2.1 10^3/ul (1.0-4.8); ABS Monocytes 0.8 10^3/ul (0-0.8); ABS Nucleated RBC 0 10^3/ul; Eosinophil % 1.2 % (0-6); Hematocrit 42 % (42-52); Hemoglobin 14.3 g/dl (14.0-18.0); Lymphocyte % 29.9 % (25-47); Mean Corpuscular HGB Conc 34 g/dl (31-36); Mean Corpuscular Hemoglobin 31 pg (27-31); Mean Corpuscular Volume 91 fL (80-94); Mean Platelet Volume 8.5 um3 (7.4-10.4); Nucleated Red Blood Cells % 0.1; Platelet Count 138 10^3/ul (150-450); Red Blood Count 4.58 10^6/ul (4.00-5.40); Red Cell Distribution Width 13 % (10.5-15)
[2018-02-23 06:26] LABS: EGFR Non-African American 81.6 (>60)
[2018-02-23] MEDS ORDERED: Multivitamins/Minerals TAB PO SCH (09:00)
[2018-02-23] MEDS ORDERED: Potassium Chlor TAB* 10 MEQ TAB.ER PO SCH (09:00)
[2018-02-23] MEDS ORDERED: Aspirin EC TAB* 81 MG TAB.EC PO SCH (09:00)
--- NOTE | 2018-02-23 12:03 | RAD ---
Edited for charges. INDICATION: Chest pain. Family history of heart disease. COMPARISON: No relevant prior exams available on the [facility] PACS for comparison. TECHNIQUE: 10.200 mCi of Tc-99m Myoview were administered IV. SPECT images of the heart were obtained. Later on the same day. Under the direction of Dr. Garza, the patient was given an IV injection of a pharmacologic stress agent. Subsequently, the patient was given an IV injection of 25.800 mCi Tc-99m Myoview. SPECT images of the heart were obtained and a gated wall motion study was performed. FINDINGS: Gated wall motion images were obtained at stress and demonstrate wall motion to be within normal limits. The calculated left ventricular ejection fraction is 73 % at stress. Estimated LEFT ventricular end diastolic volume is 63 mL. TID 0.89. Based on review of the attenuation corrected and non corrected images the distribution of radiopharmaceutical within the myocardium on the stress and rest images is within normal limits. No fixed or reversible regions of hypoperfusion evident. IMPRESSION: #. No evidence for stress induced myocardial ischemia or presence of an infarct. #. Normal left ventricular wall motion and ejection fraction. ASSESSMENT: Low risk based on nuclear portion. Based on imaging criteria from ACC/AHA 2002 Guideline Update for the Management of Patients With Chronic Stable Angina Table 23. Noninvasive Risk Stratification. MTDD
[2018-02-23 12:48] VITALS: BP 130/72
[2018-02-23] MEDS ORDERED: Aminophylline IV* 25 MG/ML 10 ML VIAL ONE (12:53)
[2018-02-23] MEDS ORDERED: Regadenoson* 0.4 MG/5 ML SYRINGE ONE (12:53)
[2018-02-24] MEDS ORDERED: Cyanocobalamin TAB* 500 MCG PO SCH (09:00)
--- NOTE | 2018-02-24 10:28 | DS ---
CC: Dr. Hayward * DISCHARGE SUMMARY: DATE OF ADMISSION: 02/22/18 DATE OF DISCHARGE: 02/23/18 PRIMARY CARE PROVIDER: Dr. Hayward. PRINCIPAL DIAGNOSIS: Noncardiac chest pain. SECONDARY DIAGNOSES: 1. Glaucoma. 2. Mild asthma. DISCHARGE MEDICATIONS: 1. Potassium 99 mg p.o. daily. 2. [place]-3 fatty acid 1 cap p.o. daily. 3. Multivitamin 1 tab p.o. daily. 4. Xalatan 1 drop to both eyes at bedtime. 5. Ipratropium bromide inhaled daily. 6. Ibuprofen 600 mg p.o. q.6 hours p.r.n. pain. 7. Flovent 1 puff inhaled daily. 8. Vitamin B12 1000 mcg p.o. every other day. 9. Cumin 1 dose p.o. b.i.d. 10. Vitamin D 1000 units p.o. every other day. 11. Refresh Tears 1 drop to both eyes twice daily. 12. Oyster Shell Calcium and Magnesium 1000 mg p.o. q.h.s. 13. Aspirin 81 mg p.o. daily. HOSPITAL COURSE: Mr. Ya is a 78-year-old male with relatively insignificant medical history, who presents to the emergency room with complaints of chest pain. The patient was admitted and ruled out for an acute coronary syndrome with serial troponins. He underwent a chemical nuclear stress test on the day of discharge that did not reveal any fixed or reversible deficits. The patient has been feeling quite well. He has been up and moving about his room without any chest pain or other difficulties. At this point, the patient is felt to be stable for discharge home. No medication changes were made. On the day of discharge, the patient is awake, alert, and oriented, sitting up in bed, in no acute distress. His vital signs are stable with normal blood pressure and heart rate. He is 98% on room air. The patient's cardiac exam reveals normal S1, S2 with regular rate and rhythm. His lungs are clear to auscultation bilaterally. Abdomen is soft, nontender, nondistended. The patient moves all 4 extremities symmetrically. FOLLOWUP CONCERNS: The patient is being discharged home today, 02/23/18. ACTIVITY LEVEL: As tolerated. DIET: Regular, as tolerated. CONDITION ON DISCHARGE: Stable. TIME SPENT: Twenty minutes was spent discharging this patient, of which greater than half was spent [id number] with the patient reviewing his discharge plan and the utility of stress testing. [id number]/[facility] #: [id number] CHAD
== END 2018-02-23 15:00 | disposition home or self-care (01) ==
LOC: ED 11:41 → MEDTELE 17:20
PROVIDERS: ADMIT Hospitalist; ATTEND Hospitalist
DX: R07.9 Chest pain, unspecified (principal); H40.9 Unspecified glaucoma; J45.909 Unspecified asthma, uncomplicated; M54.5 Low back pain; G89.29 Other chronic pain; N40.0 Benign prostatic hyperplasia without lower urinary tract symptoms; Z79.82 Long term (current) use of aspirin; Z87.19 Personal history of other diseases of the digestive system
CPT/HCPCS: 36415; 71045; 78452; 80048; 80053; 80061; 83605; 84484; 85025; 93005; 93017; 96374; 96375; 99283; A9270-GY; A9502; G0378; J0280; J1644; J1885; J2785